=== PATIENT | female | born 2000 | race Caucasian/White ===

== ENCOUNTER 2022-10-12 09:12 | Outpatient (OUT) | payer BC, SELFPAY ==
[2022-10-12 09:35] LABS: Basophils Absolute Auto 0.1 10^3/uL (0.0-0.1); Eosinophils Absolute Auto 0.2 10^3/uL (0.0-0.7); Eosinophils Percent Auto 3.3 % (0.9-7.0); Hematocrit 41.1 % (36.0-48.0); Hemoglobin 13.7 g/dL (12.0-16.0); Immature Granulocytes Abs Auto 0.02 10^3/uL (0.00-0.03); Immature Granulocytes Pct Auto 0.3 % (0.0-0.5); Lymphocytes Absolute Auto 1.9 10^3/uL (1.2-3.8); Lymphocytes Percent Auto 27.5 % (20.5-60.0); Mean Corpuscular HGB Conc 33.3 g/dL (29.9-35.2); Mean Corpuscular Hemoglobin 30.5 pg (26.7-34.0); Mean Corpuscular Volume 91.5 fL (81.0-99.0); Mean Platelet Volume 10.2 fL (9.5-13.5); Monocytes Absolute Auto 0.6 10^3/uL (0.3-0.8); Neutrophils Absolute Auto 4.1 10^3/uL (1.4-6.5); Neutrophils Percent Auto 58.9 % (43.0-75.0); Platelet Count 242 10^3/uL (150-450); Red Blood Count 4.49 10^6/uL (4.20-5.40); Red Cell Distribution Width 12.7 % (11.0-15.0); White Blood Count 6.9 10^3/uL (4.0-11.0)
[2022-10-12 10:49] LABS: Alanine Aminotransferase 16 U/L (14-59); Aspartate Amino Transferase 11 U/L (15-37); Triglycerides 35 mg/dL (<=150)
== END 2022-10-12 09:13 | disposition home or self-care (01) ==
LOC: LAB 09:16
PROVIDERS: PCP Nurse Practitioner Family
DX: L70.0 Acne vulgaris (principal)
CPT/HCPCS: 36415; 84450; 84460; 84478; 85025

== ENCOUNTER 2022-10-12 21:31 | Outpatient (REF) | payer BC, SELFPAY ==
[2022-10-18 11:12] LABS: Age Gdln ACOG Testing Note (.); IGP, rfx Aptima HPV ASCU Note (.)
== END 2022-10-12 21:32 | disposition home or self-care (01) ==
LOC: LAB 21:31
PROVIDERS: PCP Nurse Practitioner Family; Visit Provider Physician Assistant
DX: L70.0 Acne vulgaris (principal); Z12.4 Encounter for screening for malignant neoplasm of cervix
CPT/HCPCS: 36415; 84450; 84460; 84478; 85025; G0145

== ENCOUNTER 2022-10-31 08:05 | Outpatient (OUT) | payer BC, SELFPAY ==
--- NOTE | 2022-10-31 08:08 | MM_ITS ---
Patient: COOKIE WEINER Exam Date: 10/31/2022 : 2000 Gender:F Ordering : JAMES Pizano . Admission #: [id number] Family : RADHA PURDY [facility] Order #: [id number] CLICK HERE TO VIEW EXAM RADIOLOGY REPORT PROCEDURE: MM TOMOSYNTHESIS DIAGNOSTIC BI, 10/31/2022, 08:42 US BREAST BI LIMITED, 10/31/2022, 08:12 COMPARISON: None. INDICATIONS: Biolateral Breast Cyst Calculator Name NCI Breast Cancer Risk Assessment Tool 5 Year Breast Cancer Risk Not Applicable. Lifetime Breast Cancer Risk Not Applicable. Personal Breast Cancer No Personal Ovarian Cancer No Treatments None Family Cancers Grandfather-paternal with colon cancer at age 80; Uncle-maternal with brain cancer at age 50. LOCATION: [facility] BREAST COMPOSITION: Extremely dense, which lowers the sensitivity of mammography. FINDINGS: DIAGNOSTIC CATEGORY 4--SUSPICIOUS FOR MALIGNANCY. FINDING DOES NOT EXHIBIT CLASSIC FINDINGS OF BREAST CANCER: RIGHT BREAST: Deep to a skin surface marker overlying the posterior upper-outer quadrant is a 2.0 x 1.6 x 1.4 cm partially circumscribed mass. Ultrasound evaluation demonstrates a lobular, smoothly circumscribed heterogeneous mass with small amount of internal blood flow, 2.2 x 2.2 x 1.3 cm. Appearance favors a fibroadenoma. Ultrasound-guided tissue sampling should be considered for confirmation. LEFT BREAST: No significant suspicious finding on mammography and during ultrasound imaging to account for patient's palpable sensation within the posterior upper-outer quadrant.. RECOMMENDATIONS: ULTRASOUND-GUIDED CORE BIOPSY: RIGHT BREAST PLEASE NOTE: A NORMAL MAMMOGRAM DOES NOT EXCLUDE THE POSSIBILITY OF BREAST CANCER. A CLINICALLY SUSPICIOUS PALPABLE LUMP SHOULD BE BIOPSIED. Dictated by: Robert Azevedo M.D. on 10/31/2022 at 09:24 Approved by: Robert Azevedo M.D. on 10/31/2022 at 09:34
--- NOTE | 2022-10-31 08:14 | US_ITS ---
Patient: COOKIE WEINER Exam Date: 10/31/2022 : 2000 Gender:F Ordering : JAMES Pizano . Admission #: [id number] Family : RADHA PURDY [facility] Order #: [id number] CLICK HERE TO VIEW EXAM RADIOLOGY REPORT PROCEDURE: MM TOMOSYNTHESIS DIAGNOSTIC BI, 10/31/2022, 08:42 US BREAST BI LIMITED, 10/31/2022, 08:12 COMPARISON: None. INDICATIONS: Biolateral Breast Cyst Calculator Name NCI Breast Cancer Risk Assessment Tool 5 Year Breast Cancer Risk Not Applicable. Lifetime Breast Cancer Risk Not Applicable. Personal Breast Cancer No Personal Ovarian Cancer No Treatments None Family Cancers Grandfather-paternal with colon cancer at age 80; Uncle-maternal with brain cancer at age 50. LOCATION: [facility] BREAST COMPOSITION: Extremely dense, which lowers the sensitivity of mammography. FINDINGS: DIAGNOSTIC CATEGORY 4--SUSPICIOUS FOR MALIGNANCY. FINDING DOES NOT EXHIBIT CLASSIC FINDINGS OF BREAST CANCER: RIGHT BREAST: Deep to a skin surface marker overlying the posterior upper-outer quadrant is a 2.0 x 1.6 x 1.4 cm partially circumscribed mass. Ultrasound evaluation demonstrates a lobular, smoothly circumscribed heterogeneous mass with small amount of internal blood flow, 2.2 x 2.2 x 1.3 cm. Appearance favors a fibroadenoma. Ultrasound-guided tissue sampling should be considered for confirmation. LEFT BREAST: No significant suspicious finding on mammography and during ultrasound imaging to account for patient's palpable sensation within the posterior upper-outer quadrant.. RECOMMENDATIONS: ULTRASOUND-GUIDED CORE BIOPSY: RIGHT BREAST PLEASE NOTE: A NORMAL MAMMOGRAM DOES NOT EXCLUDE THE POSSIBILITY OF BREAST CANCER. A CLINICALLY SUSPICIOUS PALPABLE LUMP SHOULD BE BIOPSIED. Dictated by: Robert Azevedo M.D. on 10/31/2022 at 09:24 Approved by: Robert Azevedo M.D. on 10/31/2022 at 09:34
== END 2022-10-31 08:06 | disposition home or self-care (01) ==
LOC: MAMMO 08:05
PROVIDERS: PCP Nurse Practitioner Family; Visit Provider Physician Assistant
DX: N60.01 Solitary cyst of right breast (principal); N60.02 Solitary cyst of left breast
CPT/HCPCS: 76642; 77066; G0279

== ENCOUNTER 2022-11-21 10:54 | Day surgery (SDC) | payer BC, SELFPAY ==
--- NOTE | 2022-11-21 11:08 | US_ITS ---
Patient: COOKIE WEINER Exam Date: 11/21/2022 : 2000 Gender:F Ordering : DR Fabian Blanca . Admission #: [id number] Family : [facility]DY [facility] Order #: [id number] CLICK HERE TO VIEW EXAM This report includes an Addendum and supersedes previous reports for this exam. RADIOLOGY REPORT PROCEDURE: US BREAST VAC BX W/ CLIP RT COMPARISON: None. INDICATIONS: Right Breast Mass DESCRIPTION: After obtaining informed consent, a vacuum assisted ultrasound-guided biopsy was performed in the usual sterile manner. The location of the biopsy was then marked as indicated below. FINDINGS: RECOMMENDATIONS: SPECIMEN #, LOCATION: 5 samples, 9 o'clock right breast BIOPSY NEEDLE: 13 gauge Elite (r) vacuum core biopsy needle. MARKERS(S) PLACED: A single metallic marker was placed in the appropriate targeted location. MEDICATION: 3 cubic cm 1% buffered lidocaine without epinephrine superficial, 8 cubic cm Buffered 1% lidocaine with epinephrine deep. COMPLICATIONS: None. PATHOLOGY LAB: Pending. CONCLUSION: 1. Uneventful ultrasound-guided breast biopsy. 2. Pathology results are pending. An addendum to this report will be provided after pathology results are available. Dictated by: Saulo Page MD on 11/21/2022 at 13:18 Approved by: Saulo Page MD on 11/21/2022 at 13:18 ADDENDUM: The pathology report is now available and shows benign findings concordant with the imaging findings. Final diagnosis: Benign fibroepithelial lesion, consistent with fibroadenoma. Findings faxed to Dr. Blanca. Receipt verified with [facility] by telephone Dictated by: Saulo Page MD on 11/25/2022 at 11:36 Approved by: Saulo Page MD on 11/25/2022 at 11:36 US/US breast vac bx w/ clip RT IMPRESSION: Uneventful ultrasound guided biopsy. The patient was instructed to obtain follow up care and biopsy results from the referring physician. Electronically authenticated by: SAULO PAGE Date: 11/21/2022 13:30
--- NOTE | 2022-11-21 11:08 | MM_ITS ---
Patient: COOKIE WEINER Exam Date: 11/21/2022 : 2000 Gender:F Ordering : DR Fabian Blanca . Admission #: [id number] Family : RADHA PURDY [facility] Order #: [id number] CLICK HERE TO VIEW EXAM This report includes an Addendum and supersedes previous reports for this exam. RADIOLOGY REPORT PROCEDURE: MAMMOGRAM POST BIOPSY IMAGES COMPARISON: MM TOMOSYNTHESIS DIAGNOSTIC BI, 10/31/2022. INDICATIONS: Right Breast Mass BREAST COMPOSITION: Extremely dense, which lowers the sensitivity of mammography. FINDINGS: BIOPSY MARKER: A metallic marker has been placed in the targeted location within the upper outer quadrant of the right breast corresponding to a targeted mass. Dictated by: Tima Swartz MD on 11/22/2022 at 07:39 Approved by: Tima Swartz MD on 11/22/2022 at 07:40 ADDENDUM: FINDINGS: DIAGNOSTIC CATEGORY 2--BENIGN FINDING: RECOMMENDATIONS: CLINICAL EVALUATION. Dictated by: Tima Swartz MD on 01/11/2023 at 10:56 Approved by: Tima Swartz MD on 01/11/2023 at 10:56
[2022-11-21 11:15] VITALS: BP 107/64; PULSE 75; O2SAT 98
[2022-11-21] MEDS: LIDOCAINE HCL/EPINEPHRINE 10 ML, SODIUM BICARBONATE 1 MEQ INJ (11:15)
[2022-11-21] MEDS: LIDOCAINE HCL 10 ML, SODIUM BICARBONATE 1 MEQ INJ (11:15)
== END 2022-11-21 12:35 | disposition home or self-care (01) ==
LOC: US 10:55
PROVIDERS: Radiology Diagnostic Radiology; PCP Nurse Practitioner Family; Visit Provider Obstetrics & Gynecology
DX: D24.1 Benign neoplasm of right breast (principal)
CPT/HCPCS: 19083; 77065; 88305

== ENCOUNTER 2023-04-15 09:37 | Outpatient (OUT) | payer OTHER, SELFPAY ==
[2023-04-15 11:21] LABS: HCG Quantitative <1 mIU/mL
== END 2023-04-15 09:38 | disposition home or self-care (01) ==
LOC: LAB 09:41
PROVIDERS: PCP Nurse Practitioner Family; Visit Provider Obstetrics & Gynecology
DX: N92.6 Irregular menstruation, unspecified (principal)
CPT/HCPCS: 36415; 84702

== ENCOUNTER 2023-05-31 20:45 | Outpatient (REF) | payer OTHER, SELFPAY ==
--- OUTSIDE RECORDS SUMMARY | 2023-05-31 20:53 | XMS_ITS | CCD ---
Author Organization [facility] Care Team Providers Care Fur Puller Name Role Phone Tima Jackman Unavailable MAG, DR ARCEO Admitting Unavailable MAG, DR ARCEO Attending Unavailable RADHA PURDY Primary Care Unavailable DR ADIS HATHAWAY Consulting Unavailable MINI, DR PIRES Admitting Unavailable MINI, DR PIRES Attending Unavailable RADHA PURDY Primary Care Unavailable MINI, DR PIRES Consulting Unavailable Lauren Hyde Unavailable RADHA PURDY Primary Care Physician Kevin Choi Admitting Unavailable Kevin Choi Referring Unavailable Kevin Choi Attending Unavailable GREER PAYNE Attending Unavailable GREER PAYNE Admitting Unavailable Kevin Choi Attending Unavailable Kevin Choi Admitting Unavailable Kevin Choi Referring Unavailable KEVIN CHOI Attending Unavailable JIMBO, KEVIN Brasher Attending Unavailable Allergies Allergy Classification Reported Allergen(s) Allergy Type Date of Onset Reaction(s) Facility (1 source) Adhesive agent Drug allergy (disorder) [facility] Repository (4 sources) Latex; Translations: [Latex] Drug allergy Swelling, Itching [facility] Medications Current Medications Medication Drug Class(es) Dates Sig (Normalized) Sig (Original) acetaminophen 325 mg / HYDROcodone bitartrate 5 mg oral tablet (1 source) Opioid Agonist Start: 02-08-2023 [place] 325 mg-5 mg oral tablet 1 tab(s), Oral, q6hr for pain, 24 tab(s), Refill(s) 0, [id number], 166.7, cm, 01/27/23 11:47:00 EST, Height/Length Dosing, 79.2, kg, 01/27/23 11:47:00 EST, Weight Dosing Start Date: 02/08/23 Status: Ordered amoxicillin 875 mg / clavulanate 125 mg oral tablet (1 source) Penicillin-class Antibacterial Start: 12-11-2022 take 1 tablet by mouth every twelve hours Amoxicillin-Pot Clavulanate 875-125 MG 1 tablet Orally every 12 hrs for 10 day(s) Dec, Active ARIPiprazole 2 mg oral tablet (5 sources) Atypical Antipsychotic Start: 01-27-2023 take 1 tablet by mouth once daily aripiprazole 2 mg Tab 2 mg = 1 tab(s), Oral, Daily, Anxiety Start Date: 01/27/23 Status: Ordered take 1 tablet by patsy th every twenty-four hours ARIPiprazole 10 MG 1 tablet Orally Once a day Active ARIPiprazole Act jeanine dicyclomine hydrochloride 20 mg oral tablet (2 sources) Anticholinergic Start: 02-08-2021 take 1 tablet by mouth every eight hours Dicyclomine HCl 20 MG 1 tablet Orally Three times a day for 30 days prn Feb, Active ISOtretinoin 40 mg oral capsule (4 sources) Retinoid Start: 01-27-2023 take 1 capsule by mouth once daily Isotretinoin (Eqv-Absorica) 40 mg oral capsule 40 mg = 1 cap(s), Oral, Daily, Other (see comment) Start Date: 01/27/23 Status: Ordered take [address] [facility] every twenty-four hours Accutane 10 MG 1 capsule Orally once a day Active pantoprazole 40 mg delayed release oral tablet (2 sources) Proton Pump Inhibitor take 1 tablet by mouth every twenty-four hours Protonix 40 MG 1 tablet Orally Once a day Active sertraline 50 mg oral tablet (5 sources) Serotonin Reuptake Inhibitor Start: take 1 tablet by mouth once daily sertraline 50 mg Tab 50 mg = 1 tab(s), Oral, Daily, Depression Start Date: 01/27/23 Status: Ordered take 1 tablet by patsy th every twenty-four hours Zoloft 50 MG 1 tablet Orally Once a day Active sucralfate 1000 mg oral tablet (1 source) Aluminum Complex Start: 08-26-2021 take 1 tablet by mouth every twelve hours Sucralfate 1 GM 1 tablet on an empty stomach Orally Twice a day for 30 day(s) Aug, Active Completed/Discontinued Medications Medication Drug Class(es) Dates Sig (Normalized) Sig (Original) hydrocortisone 25 mg/ml topical cream (2 sources) Corticosteroid Start: 08-26-2021 Anusol-HC 2.5 % 1 application Externally Twice a day for 14 days Aug, Not-Taking ondansetron 4 mg oral tablet (3 sources) Serotonin-3 Receptor Antagonist Start: 02-08-2021 take 1 tablet by mouth every six hours as needed Ondansetron HCl 4 MG 1 tablet Orally EVERY 6 HRS NEEDED for 30 day(s) Feb, Not-Taking Problems Active Problems Problem Classification Problem Date Documented Da te Episodic/Chronic Abdominal pain (4 sources) Right upper quadrant pain; Translations: [Right upper quadrant pain] Onset: 2 Resolved: 2 Episodic Acute and chronic tonsillitis (1 source) Chronic tonsillitis; Translations: [Chronic tonsillitis] Onset: 4 Chronic Anxiety disorders (3 sources) Anxiety 01-27-2023 Chronic Esophageal disorders (5 sources) Gastroesophageal reflux disease; Translations: [Gastro-esophageal reflux disease without esophagitis] Onset: 2 Resolved: 2 Chronic Hemorrhoids (3 sources) Hemorrhoids; Translations: [Unspecified hemorrhoids] Onset: 2 Resolved: 2 Episodic Menstrual disorders (4 sources) Irregular menstruation, unspecified; Translations: [IRREGULAR MENSTRUATION UNSPECIFIED] Onset: 2 Chronic Mood disorders (6 sources) Bipolar disorder; Translations: [Depressive disorder] 01-27-2023 Chronic Other gastrointestinal disorders (5 sources) Irritable bowel syndrome; Translations: [Mixed irritable bowel syndrome] 01-27-2023 Chronic Other gastrointestinal disorders (1 source) Mixed irritable bowel syndrome Onset: 2 Resolved: 2 Chronic Other upper respiratory infections (3 sources) Acute sinusitis, unspecified; Translations: [Acute pharyngitis, unspecified] Onset: 2 Episodic Residual codes; unclassified (3 sources) FH: Crohn's disease; Translations: [Family history of other diseases of the digestive system] Episodic Residual codes; unclassified (3 sources) Insomnia 01-27-2023 Episodic Substance-related disorders (3 sources) Smoker 08-23-2020 Chronic Comment on above: Added secondary to d ocumentation in Social History. Unclassified (3 sources) CONTACT W/AND (SUSP) EXPOS COVID-19; Translations: [CONTACT W/AND (SUSP) EXPOS COVID-19] Onset: Past or Other Problems Problem Classification Problem Date Documented Da te Episodic/Chronic Nausea and vomiting (1 source) Nausea with vomiting, unspecified Onset: 02-08-2021 Resolved: 02-08-2021 Episodic Other gastrointestinal disorders (1 source) Diarrhea, unspecified Onset: 02-08-2021 Resolved: 02-08-2021 Episodic Residual codes; unclassified (1 source) Family history of other diseases of the digestive system Onset: 02-08-2021 Resolved: 02-08-2021 Episodic Unclassified (1 source) CONTACT W/AND (SUSP) EXPOS COVID-19; Translations: [CONTACT W/AND (SUSP) EXPOS COVID-19] Onset: 12-09-2021 Results Test Name Value Interpretation Reference Range Facility IntraOperative Documentson 0 02-13-2023 IntraOperative Documents [id number]#1.00TIFF [facility] Postoperative Documentson Postoperative Documents [id number]#1.00TIFF [facility] Consent for Anesthesiaon Consent for Anesthesia [id number]#1.00TIFF [facility] Discharge Instructionson Discharge Instructions [id number]#1.00TIFF [facility] IntraOperative Documentson 0 02-09-2023 IntraOperative Documents [id number]#1.00TIFF [facility] Preoperative Documentson Preoperative Documents [id number]#1.00TIFF [facility] Consent for Treatmenton Consent for Treatment [id number]#1.00TIFF [facility] Discharge Instructionson Discharge Instructions COOKIE WEINER :2000 Visit Date:02/08/2023 Inpatient Discharge Instructions Your Care Team Admitting Physician - Kevin Choi DO Referring Physician - Kevin Choi DO Reason for Your Visit CHRONIC TONSILITIS Your Diagnosis Chronic tonsillitis Tests Performed Pathology Tissue Exam -- Results Pending -- U Beta Hcg Qual Please visit your patient portal for your results or contact your primary care physician. This Is Your Medications List acetaminophen-hydrocodone ([place] 325 mg-5 mg oral tablet) aripiprazole (aripiprazole 2 mg Tab) isotretinoin (Isotretinoin (Eqv-Absorica) 40 mg oral capsule) sertraline (sertraline 50 mg Tab) Procedure History Biopsy of breast, EGD - esophagogastroduodenoscopy. What to do next Instructions From Your Doctor Event Name Event Result Discharge Instructions Freetext No exertional activityPlenty of fluidsMust chew and swallow Discharge Activity Ambulate as tolerated Discharge Restrictions Do not operate machinery or tools Discharge Diet(s) Regular Call Your Doctor For Persistent or heavy bleeding, Temperature above 101.5 degrees, Persistent vomiting Discharge Instructions Discharge Instructions New Follow Up Appointments after Discharge Follow Up with Kevin Choi When: Where: [facility] [address] [place] [phone] Business (1) Medications What How Much When Instructions Next Dose New acetaminophen-hydrocodone ([place] 325 mg-5 mg oral tablet) 1 Tablets By Mouth Every 6 hours as needed for for pain Pickup at [facility]/pharmacy #[id number] Unchanged aripiprazole (aripiprazole 2 mg Tab) 1 Tablets By Mouth Every day Unchanged isotretinoin (Isotretinoin (Eqv-Absorica) 40 mg oral capsule) 1 Capsules By Mouth Every day Unchanged sertraline (sertraline 50 mg Tab) 1 Tablets By Mouth Every day Pharmacy Information [facility]/pharmacy #[id number]: [address], [place] [phone] Test Results No qualifying data available. Allergies Latex (Swelling, Itching) [employer] [place], [place] Kevin Chio, DO DISCHARGE INSTRUCTIONS: TONSILLECTOMY & ADENOIDECTOMY (T&A) (Adult) The following information is to help you understand what to expect following a T&A. PAIN: Throat pain can be quite severe immediately following a T&A. The same nerves that go to the tonsils also go to the ears. It is common to experience pain in the ears between the 3rd and 7th days following the T&A. The pain medication which was prescribed should help lessen the pain, although it may not completely take it away. The sooner chewing and swallowing begins, the quicker the pain will subside. Take the pain medication as needed in the prescribed dosage. DO NOT take Ibuprofen, Aleve, Advil, Motrin, or product containing aspirin! These medications can increase the chances of bleeding. Tylenol is a good choice when the pain is less severe. Additional measures to decrease throat pain include ice collars around the neck, popsicles, cold liquids, and chewing gum (but not Aspergum). DIET: You will probably not want to eat the day of surgery because it hurts to swallow. The day of surgery, all that is necessary is to drink liquids. This may be in the form of popsicles, jello, sherbert, etc. The day after surgery it is very important to begin to chew and swallow. Start with small pieces of bread, donuts, apples without the skin, etc. The sooner chewing and swallowing begin, the faster the recovery. You cannot damage your throat by swallowing solid foods, in fact it is good for the throat! There are no food restrictions, however sharp foods such as potato chips and rosas can cause pain. Drink plenty of fluids daily. TEMPERATURE: It is common to run a low-grade fever (99? ? 100? F, oral) for the first few days following surgery. This may be treated with Tylenol. A temperature greater than 101 usually is the result of early dehydration and means that your child needs more fluid. Call the office if the temperature does not decrease despite Tylenol and fluids. ACTIVITY: Generally, it is advisable to keep a low level of activity for the first 26-48 hours following their T&A. You will feel tired and lack energy for the first day or two after surgery. As you begin to feel better, activity can slowly be increased. Vigorous activity should be avoided for 7-14 days following the T&A. Most adults can return to full activity 10-14 days after surgery. BLEEDING: Bleeding following a T&A is rare. The most common time to bleed is the day of surgery. The second most common time is approximately 5-10 days following surgery, when the scabs begin to loosen and fall off. During this time, you may spit up some blood tinged saliva. If this persists longer than 5-10 minutes, call the office. If brisk bleeding occurs, go immediately to the nearest Emergency Room where your doctor will be notifie (more content not included)... [facility] Comment on above: Result Comment: Elec tronically Signed By: Cheko BEAR, Gabrielle Shah\.br\Date and Time Signed: 02/08/23 08:42 EST H&P Updateon 02-08-2023 H&P Update [id number]#1.00TIFF [facility] Inpatient Patient Summaryon 02-08-2023 Inpatient Patient Summary [address] [address] [facility] Clinical Discharge Instructions PERSON INFORMATION Name: [facility] Admitting Physician: Kevin Choi DO Attending Physician: Kevin Choi DO PCP: RADHA PURDY CNP Discharge Diagnosis: Chronic tonsillitis Comment: PATIENT EDUCATION INFORMATION Instructions: Medication Leaflets: Follow up: With: Address: When: Kevin Choi [facility] [place] [address] [place] [phone] Business (1) MEDICATION LIST New Medications [facility]/pharmacy #[id number], [address], [place] [phone], [phone] acetaminophen-hydrocodone ([place] 325 mg-5 mg oral tablet) 1 Tablets By Mouth every 6 hours as needed for pain. Refills: 0. Medications to Continue with No Changes Other Medications aripiprazole (aripiprazole 2 mg Tab) 1 Tablets By Mouth every day. isotretinoin (Isotretinoin (Eqv-Absorica) 40 mg oral capsule) 1 Capsules By Mouth every day., acne sertraline (sertraline 50 mg Tab) 1 Tablets By Mouth every day. Comment: Normal [facility] Main OR Intraoperative Recor don 02-08-2023 Main OR Intraoperative Record IntraOp Document Type FT Summary Primary Physician: Kevin Choi DO Finalized Date/Time: 02/08/23 14:54:54 Pt. Name: COOKIE WEINER GIOVANNY /Sex: 2000 Female Med Rec #: [id number] Physician: Kevin Choi DO Financial #: [id number] Pt. Type: A Room/Bed: [facility] Admit/Disch: 02/08/23 05:57:01 - 02/08/23 10:00:00 Institution: Case Times FT Entry 1 Patient Times In Room 02/08/23 07:44:00 Out Room 02/08/23 08:20:00 Procedure Times Start 02/08/23 07:57:00 Stop 02/08/23 08:12:00 Anesthesia Times Start 02/08/23 07:44:00 Stop 02/08/23 08:20:00 Last Modified By: Daryl BEAR, Giovana Griffith 02/08/23 08:20:19 General Comments: 02/08/23 Chart opened to review and send charges [facility]FA Case Attendance FT Entry 1 Entry 2 Entry 3 Case Attendee Karin Campbell CRNA, DO, Paul S Ferrer RN, Giovana Griffith Role Performed AREA RELIEF PILOT Surgeon - Primary Staff Counsel - Primary Time In 02/08/23 07:44:00 02/08/23 07:44:00 02/08/23 07:44:00 Time Out 02/08/23 08:20:00 02/08/23 08:20:00 02/08/23 08:20:00 Procedure TONSILLECTOMY(.) TONSILLECTOMY(.) TONSILLECTOMY(.) Comments DR. GARCIA SUPERVISING Last Modified By: Daryl BEAR, Giovana Brito RN, Giovana Brito RN, Giovana Griffith 02/08/23 Angi Griffith 02/08/23 Angi Griffith 02/08/23 08:20:21 08:20:21 08:20:21 Entry 4 Case Attendee Amrita Webster Role Performed Scrub - Primary Time In 02/08/23 07:44:00 Time Out 02/08/23 08:20:00 Procedure TONSILLECTOMY(.) Comments Last Modified By: Giovana Brito RN 02/08/23 08:20:21 Perioperative Protocols FT Pre-Care Text: Implements protective measures prior to operative or invasive procedure, confirms identity before the operative or invasive procedure, verifies operative procedure, surgical site, and laterality Entry 1 Procedure(s) TONSILLECTOMY(.) Patient Identity Birthday, ID Band Verified (select at Check, Patient least 2): Participation Consents / H and P Anesthesia Consent, Operative Site N/A Verified HandP, Surgery/Procedure Marking Verified Consent Surgical Site Yes Laterality Verified Yes Verified Procedure Verified Yes Correct Patient Yes Position Verified Availability Equipment, Medication Prep Dry n/a Verified (If Applicable) PreOp Antibiotic No Time Out Kevin Choi DO, Given Participants Karin Campbell CRNA, Giovana Brito RN, [place], [place] A Time Out Complete 02/08/23 07:57:00 Outcomes Met? Yes Last Modified By: Giovana Brito RN 02/08/23 08:08:39 Post-Care Text: The patient is free from signs and symptoms of injury caused by extraneous objects Allergy Information FT Pre-Care Text: Verifies allergies Entry 1 Allergies Reviewed? Yes Allergies Reviewed Self/Patient With Outcomes Met? Yes Last Modified By: Giovana Brito RN 02/08/23 08:08:43 Post-Care Text: The patient received appropriate medication(s) safely administered during the perioperative period Surgical Procedures FT Entry 1 Procedure Description Procedure TONSILLECTOMY Modifiers . Surgeon Description TONSILLECTOMY Primary Procedure Yes Primary Surgeon Kevin Choi DO Start 02/08/23 07:57:00 Stop 02/08/23 08:12:00 Anesthesia Type General Surgical Service ENT Wound Class 2 - Clean-Contaminated Last Modified By: Giovana Brito RN 02/08/23 08:14:15 General Case Data FT Pre-Care Text: Classifies surgical wound, implements aseptic technique, initiates traffic control Entry 1 Case Information OR OR 2 FT Case Level Level 2 Wound Class 2 - Clean-Contaminated Specialty ENT ASA Class 2 Preop Diagnosis CHRONIC TONSILITIS Postop Same As Preop Yes Postop Diagnosis CHRONIC TONSILITIS Outcomes Met? Yes Last Modified By: Giovana Brito RN 02/08/23 08:08:51 Post-Care Text: The patient is free from signs and symptoms of infection Skin Assessment (Pre Procedure) FT Pre-Care Text: Implements protective measures to prevent skin/ tissue injury due to thermal or mechanical sources Evaluates for signs and symptoms of physical injury to skin and tissue Entry 1 Skin Integrity Intact, [place], Warm, and Skin Abnormality No Dry Outcomes Met? Yes Last Modified By: Giovana Brito RN 02/08/23 08:08:59 Post-Care Text: The patient is free from signs and symptoms of injury caused by extraneous objects Patient Positioning FT Pre-Care Text: Identifies physical alterations that require additional precautions for procedure-specific positioning, verifies presence of prosthetics or corrective devices, positions the patient, evaluates the patient for signs and symptoms of injury as a result of positioning Entry 1 Procedure TONSILLECTOMY(.) Body Position Supine Feet Uncrossed? Yes Left Arm Position Extended on Padded Arm Board Right Arm Position Tucked and Padded at Left Leg Position Extended Side Right Leg Position Exten (more content not included)... Normal [facility] Main OR PACU I [facility] Main OR PACU I Record PACU Phase I Document Type FT Summary Primary Physician: Kevin Choi DO Finalized Date/Time: 02/08/23 09:04:57 Pt. Name: COOKIE WEINER/Sex: 2000 Female Med Rec #: [id number] Physician: Kevin Choi DO Financial #: [id number] Pt. Type: A Room/Bed: Admit/Disch: 02/08/23 05:57:01 - Institution: Case Times PACU I FT Pre-Care Text: Identifies barriers to communication and implements measures to provide psychological support Develops individualized plan of care, and ensures continuity of care Maintains patient's dignity and privacy, and maintains patient confidentiality Identifies and reports philosophical, cultural, and spiritual beliefs and values Identifies individual values and wishes concerning care Implements aseptic technique, and administers prescribed antibiotic therapy and immunizing agents as ordered Evaluates postoperative tissue perfusion Implements thermoregulation measures, and monitors body temperature Evaluates postoperative respiratory status Evaluates postoperative cardiac status Evaluates postoperative neurological status Assesses pain control, collaborated in initiating patient-controlled analgesia and implements alternative methods of pain control Verifies allergies, administers prescribed medications and solutions, evaluates response to medications Entry 1 In PACU I 02/08/23 08:21:00 Discharge from PACU 02/08/23 08:51:00 I Outcomes Met? Yes Last Modified By: Laura Cerda RN 02/08/23 09:04:40 Post-Care Text: The patient demonstrates knowledge of the expected response to the operative or invasive procedure The patient's care is consistent with the individualized perioperative plan of care The patient's right to privacy is maintained The patient's value system, lifestyle, ethnicity, and culture are considered, respected, and incorporated into the perioperative plan of care The patient participates in decisions affecting his or her perioperative plan of care The patient is free from signs and symptoms of infection The patient has wound/tissue perfusion consistent with or improved from baseline levels established preoperatively The patient is at or returning to normothermia at the conclusion of the immediate postoperative period The patient's respiratory function is consistent with or improved from baseline levels established preoperatively The patient's cardiovascular status is consistent with or improved from baseline levels established preoperatively The patient's cardiovascular status is consistent with or improved from baseline levels established preoperatively The patient demonstrates and/or reports adequate pain control throughout the perioperative period The patient received appropriate medication(s), safely administered during the perioperative period Acuity Level PACU I FT Entry 1 Start Time 02/08/23 08:21:00 Stop Time 02/08/23 08:51:00 Acuity Level Acuity Level I Last Modified By: Laura Cerda RN 02/08/23 09:04:54 Finalized By: Laura Cerda RN Document Signatures Signed By: Laura Cerda RN 02/08/23 09:04 [facility] Main OR PACU II [facility] Main OR PACU II Record PACU Phase II Document Type FT Summary Primary Physician: Kevin Choi DO Finalized Date/Time: 02/08/23 10:44:11 Pt. Name: COOKIE WEINER GIOVANNY Judd/Sex: 2000 Female Med Rec #: [id number] Physician: Kevin Choi DO Financial #: [id number] Pt. Type: A Room/Bed: [place] [address] Admit/Disch: 02/08/23 05:57:01 - 02/08/23 10:00:00 Institution: Case Times PACU II FT Pre-Care Text: Identifies barriers to communication and implements measures to provide psychological support and determines knowledge level Develops individualized plan of care, and ensures continuity of care Maintains patient's dignity and privacy, and maintains patient confidentiality Identifies and reports philosophical, cultural, and spiritual beliefs and values Identifies individual values and wishes concerning care administers prescribed antibiotic therapy and immunizing agents as ordered, Evaluates postoperative tissue perfusion Implements thermoregulation measures, and monitors body temperature Evaluates postoperative respiratory status Evaluates postoperative cardiac status Evaluates postoperative neurological status Assesses pain control, collaborated in initiating patient-controlled analgesia and implements alternative methods of pain control Verifies allergies, administers prescribed medications and solutions, evaluates response to medications Entry 1 In PACU II 02/08/23 08:55:00 Discharge from PACU 02/08/23 10:00:00 II Outcomes Met? Yes Last Modified By: Radha Valdovinos RN 02/08/23 10:43:49 Post-Care Text: The patient demonstrates knowledge of the expected response to the operative or invasive procedure The patient's care is consistent with the individualized perioperative plan of care The patient's right to privacy is maintained The patient's value system, lifestyle, ethnicity, and culture are considered, respected, and incorporated into the perioperative plan of care The patient participates in decisions affecting his or her perioperative plan of care. The patient is free from signs and symptoms of infection The patient has wound/tissue perfusion consistent with or improved from baseline levels established preoperatively The patient is at or returning to normothermia at the conclusion of the immediate postoperative period The patient's respiratory function is consistent with or improved from baseline levels established preoperatively The patient's cardiovascular status is consistent with or improved from baseline levels established preoperatively The patient's neurological status is consistent with or improved from baseline levels established preoperatively The patient demonstrates and/or reports adequate pain control throughout the perioperative period The patient received appropriate medication(s), safely administered during the perioperative period Finalized By: Radha Valdovinos RN Document Signatures Signed By: Radha Valdovinos RN 02/08/23 10:43 Radha Valdovinos RN 02/08/23 10:44 Normal [facility] Main OR Preoperative Recordo n 02-08-2023 Main OR Preoperative Record PreOp Document Type FT Summary Primary Physician: Kevin Choi DO Finalized Date/Time: 02/08/23 08:11:26 Pt. Name: WEINER COOKIEGOMEZ GonzalezO.B./Sex: 2000 Female Med Rec #: [id number] Physician: Kevin Choi DO Financial #: [id number] Pt. Type: A Room/Bed: [facility] Admit/Disch: 02/08/23 05:57:01 - Institution: Case Times PreOp FT Pre-Care Text: Verifies consent for planned procedure, identifies individual values and wishes concerning care, includes family members in perioperative teaching Entry 1 Patient Times. In Pre Surgery 02/08/23 22:30:00 Out Pre Surgery 02/08/23 07:42:00 Outcomes Met? Yes Last Modified By: Giovana Brito RN 02/08/23 08:11:24 Post-Care Text: The patient participates in decisions affecting his or her perioperative plan of care Finalized By: Giovana Brito RN Document Signatures Signed By: Giovana Brito RN 02/08/23 08:11 Normal [facility] Monitor Recordon 02-08-2023 Monitor Record [id number] Normal [facility] Monitor Record [id number] [facility] Operative Reporton Operative Report SURGERY DATE: 2023 PREOPERATIVE DIAGNOSIS: Chronic tonsillitis POSTOPERATIVE DIAGNOSIS: Chronic tonsil stones OPERATION: Tonsillectomy ANESTHESIA: General BLOOD LOSS: Less than 10 cc COMPLICATIONS: None GROSS FINDINGS: This is a 23 year old white female with a history of chronic throat discomfort from cryptic and chronically infected tonsils along with repeated problems with tonsil stones and throat irritation. Intraoperatively, tonsils were 1-2+, hypertrophic with a significant amount of cryptic degeneration as well as stone formation. PROCEDURE: Cookie was brought to the Operating Room Suite at [facility] at which time general anesthesia was administered via endotracheal tube. The patient was placed in supine position at which time she was prepped and draped in normal fashion. A mouth gag was placed into the oral airway and opened exposing the oropharynx. The mouth gag was then suspended from the Summers stand. Right tonsil was grasped with a curved Allis forceps and medially retracted. Using electric Bovie cautery the tonsil was then dissected from the tonsil fossa. The tonsil was removed in toto and sent for pathological analysis. Hemostasis of the tonsil fossa was achieved using electric suction cautery. When this was completed, the exact same procedure was completed on the opposite side. Once again tonsil was removed in toto and sent for pathological analysis. Hemostasis achieved using electric suction cautery. The mouth and throat were suctioned of all residual sections. Mouth gag was taken off suspension and released for 30 seconds. Mouth gag was opened revealing no evidence of breakthrough bleeding. Vistaseal was then applied to the tonsil fossae bilaterally. Mouth gag was released and removed from the oral airway. Anesthesia was reversed and the patient awoke without difficulty. The patient was taken to Post-Anesthesia Care Unit in stable and satisfactory condition. Karime Miller Dictated: 02/08/2023 [id number] Transcribed: 02/08/2023 [facility] Comment on above: Result Comment: Elec tronically Signed By: Kevin Choi DO\.br\Date and Time Signed: 02/08/23 10:04 EST Operative Report Patient: JESUS WEINER Age: 23 years Sex: Female : 2000 Associated Diagnoses: None Author: Kevin Choi DO Postoperative Information Preoperative Diagnosis: Chronic tonsillitis. Postoperative Diagnosis: Same. Procedure: Tonsillectomy. Anesthesia Method: General. Performed by: Kevin Choi DO. Specimens Removed: Tonsils. Estimated Blood Loss: 5 ml. Complications: None. Normal [facility] Comment on above: Result Comment: Elec tronically Signed By: Kevin Choi DO\.br\Date and Time Signed: 02/08/23 08:21 EST Outpatient Surgery Discharge Instructionon 02-08-2023 Outpatient Surgery Discharge Instruction [address] [address] Patient Discharge Instructions PERSON INFORMATION Name: COOKIE WEINER Date of : 2000 Current Date: 02/08/2023 08:26:48 PHYSICIANS Admitting Physician: Kevin Choi DO Discharge Diagnosis: Chronic tonsillitis COOKIE WEINER has been given the following list of follow-up instructions, prescriptions, and patient education materials: PATIENT FOLLOW-UP INFORMATION Diet: Regular Discharge Activity: Ambulate as tolerated Discharge Restrictions: Do not operate machinery or tools Call Your Doctor For: Persistent or heavy bleeding, Temperature above 101.5 degrees, Persistent vomiting Additional Instructions: No exertional activity Plenty of fluids Must chew and swallow IF UNABLE TO CONTACT YOUR PHYSICIAN AND YOU FEEL IT IS AN EMERGENCY, GO TO THE NEAREST EMERGENCY ROOM OR CALL 911 IHUSAM KATIE JO, have received the attached patient education materials/instructions and have verbalized understanding: May we do a follow up call? Yes No I was present when discharge instructions were given __ Patient Signature Date Clinican/Nurse Signature Date Follow up: With: Address: When: Kevin Choi [facility] [address] [place] [address] [phone] Business (1) Pharmacy Information: You may receive a survey from Franci Crum asking you to rate your care experience. Your feedback is important and will help us understand what we do well and how we can improve the quality of care we provide to you, your loved ones and our community. It?s an honor to serve you. Thank you for choosing [facility] HERE ARE THE MEDICATION CHANGES THAT OCCURRED DURING YOUR HOSPITAL STAY New Medications [id number], [address], [place] [phone], [phone] acetaminophen-hydrocodone ([place] 325 mg-5 mg oral tablet) 1 Tablets By Mouth every 6 hours as needed for pain. Refills: 0. Medications to Continue with No Changes Other Medications aripiprazole (aripiprazole 2 mg Tab) 1 Tablets By Mouth every day. isotretinoin (Isotretinoin (Eqv-Absorica) 40 mg oral capsule) 1 Capsules By Mouth every day., acne sertraline (sertraline 50 mg Tab) 1 Tablets By Mouth every day. PATIENT EDUCATION INFORMATION Instructions: Medication Leaflets: Normal [facility] Patient Education - Texton 0 02-08-2023 Patient Education - Text [place], [place] Kevin Choi, DO DISCHARGE INSTRUCTIONS: TONSILLECTOMY & ADENOIDECTOMY (T&A) (Adult) The following information is to help you understand what to expect following a T&A. PAIN: Throat pain can be quite severe immediately following a T&A. The same nerves that go to the tonsils also go to the ears. It is common to experience pain in the ears between the 3rd and 7th days following the T&A. The pain medication which was prescribed should help lessen the pain, although it may not completely take it away. The sooner chewing and swallowing begins, the quicker the pain will subside. Take the pain medication as needed in the prescribed dosage. DO NOT take Ibuprofen, Aleve, Advil, Motrin, or product containing aspirin! These medications can increase the chances of bleeding. Tylenol is a good choice when the pain is less severe. Additional measures to decrease throat pain include ice collars around the neck, popsicles, cold liquids, and chewing gum (but not Aspergum). DIET: You will probably not want to eat the day of surgery because it hurts to swallow. The day of surgery, all that is necessary is to drink liquids. This may be in the form of popsicles, jello, sherbert, etc. The day after surgery it is very important to begin to chew and swallow. Start with small pieces of bread, donuts, apples without the skin, etc. The sooner chewing and swallowing begin, the faster the recovery. You cannot damage your throat by swallowing solid foods, in fact it is good for the throat! There are no food restrictions, however sharp foods such as potato chips and rosas can cause pain. Drink plenty of fluids daily. TEMPERATURE: It is common to run a low-grade fever (99? ? 100? F, oral) for the first few days following surgery. This may be treated with Tylenol. A temperature greater than 101 usually is the result of early dehydration and means that your child needs more fluid. Call the office if the temperature does not decrease despite Tylenol and fluids. ACTIVITY: Generally, it is advisable to keep a low level of activity for the first 26-48 hours following their T&A. You will feel tired and lack energy for the first day or two after surgery. As you begin to feel better, activity can slowly be increased. Vigorous activity should be avoided for 7-14 days following the T&A. Most adults can return to full activity 10-14 days after surgery. BLEEDING: Bleeding following a T&A is rare. The most common time to bleed is the day of surgery. The second most common time is approximately 5-10 days following surgery, when the scabs begin to loosen and fall off. During this time, you may spit up some blood tinged saliva. If this persists longer than 5-10 minutes, call the office. If brisk bleeding occurs, go immediately to the nearest Emergency Room where your doctor will be notified at once. BAD BREATHE: Bad breathe following T&A is common. The whitish patches on the back of you throat are not infection. These are scabs that form in the area where the tonsils were removed. The whitish discoloration is from them being wet with salvia. These scabs can cause bad breath as they degenerate and eventually fall off. If the bad breath becomes particularly offensive, you may gargle with a weak saltwater solution (1/4 tsp of table salt in 8 oz of water) 3-4 times a day. FOLLOW-UP: If you do not already have a follow-up appointment, please call the office one or two days after your T&A to schedule a return visit. This should be 7-10 days following surgery. If you have any questions concerning your surgery, do not hesitate to call the office at . Reviewed: 03/16 Normal [facility] Progress Note-Physicianon Progress Note-Physician Patient: COOKIE WEINER Age: 23 years Sex: Female : 2000 Associated Diagnoses: None Author: Manolo Garcia DO Postoperative Information Postoperative disposition: Postoperative disposition: To PACU. Optimetrix number: Optimetrix number [id number]. Anesthetic utilized: General. Health Status Allergies: Allergic Reactions (Selected) Severity Not Documented Latex- Swelling and itching. Current medications: (Selected) Inpatient Medications Ordered Lactated Ringers IV Vidhi 1000 mL 1,000 mL: 1,000 mL, IV, 150 mL/hr, Routine, Start date 02/08/23 6:00:00 EST, 6.7 hour(s), Total volume (mL): 1,000, 79.2 kg, 1.92, m2 Lactated Ringers IV Vidhi 1000 mL 500 mL: 500 mL, IV, 100 mL/hr, Routine, Start date 02/08/23 8:22:00 EST, 5 hour(s), Total volume (mL): 500, 79.2 kg, 1.92, m2 [place] 325 mg-5 mg oral tablet: 1 tab(s), Tab, Oral, q4hr PRN Pain, Routine, Start date 02/08/23 8:22:00 EST Zofran 4 mg/2 mL Injection: 4 mg = 2 mL, Injection, IV Push, q6hr PRN Nausea/Vomiting, Routine, Start date 02/08/23 8:22:00 EST, 02/08/23 8:22:00 EST meperidine 50 mg/mL Inj: 25 mg = 0.5 mL, Injection, IV Push, q4hr PRN Pain 8-10 for 5 day(s), Stop date 02/13/23 8:21:00 EST, Routine, Start date 02/08/23 8:22:00 EST, 02/08/23 8:22:00 EST Prescriptions Prescribed [place] 325 mg-5 mg oral tablet: 1 tab(s), Oral, q6hr for pain, 24 tab(s), Refill(s) 0, [id number], 166.7, cm, 01/27/23 11:47:00 EST, Height/Length Dosing, 79.2, kg, 01/27/23 11:47:00 EST, Weight Dosing Documented Medications Documented Isotretinoin (Eqv-Absorica) 40 mg oral capsule: 40 mg = 1 cap(s), Oral, Daily, Other (see comment) aripiprazole 2 mg Tab: 2 mg = 1 tab(s), Oral, Daily, Anxiety sertraline 50 mg Tab: 50 mg = 1 tab(s), Oral, Daily, Depression, Home Medications (4) Active aripiprazole 2 mg Tab 2 mg = 1 tab(s), Oral, Daily Isotretinoin (Eqv-Absorica) 40 mg oral capsule 40 mg = 1 cap(s), Oral, Daily [place] 325 mg-5 mg oral tablet 1 tab(s), PRN, Oral, q6hr sertraline 50 mg Tab 50 mg = 1 tab(s), Oral, Daily Problem list: All Problems Anxiety / SNOMED CT 99418956 / Confirmed Chronic bipolar disorder / SNOMED CT 68329681 / Confirmed Depression / SNOMED CT 95518331 / Confirmed IBS (irritable bowel syndrome) / SNOMED CT 54320792 / Confirmed Insomnia / SNOMED CT 871709388 / Confirmed Smoker / SNOMED CT 765460369 / Confirmed Added secondary to documentation in Social History. Unable to afford medication / SNOMED CT 111066656135431 / Possible Problem added automatically by Discern Expert based on clinical documentation Physical Examination Vital Signs 02/08/2023 8:54 EST Heart Rate Monitored 77 bpm SpO2 99 % 02/08/2023 8:53 EST Respiratory Rate 14 br/min 02/08/2023 8:53 EST Systolic Blood Pressure 110 mmHg Diastolic Blood Pressure 71 mmHg Mean Arterial Pressure, Monitered 84 mmHg 02/08/2023 8:45 EST Temperature Temporal Artery 36.9 DegC Heart Rate Monitored 73 bpm Respiratory Rate Monitored 15 br/min Systolic Blood Pressure 111 mmHg Diastolic Blood Pressure 70 mmHg Blood Pressure Location Right arm Mean Arterial Pressure, Cuff 84 mmHg SpO2 97 % 02/08/2023 8:40 EST Heart Rate Monitored 84 bpm Respiratory Rate Monitored 16 br/min Systolic Blood Pressure 121 mmHg Diastolic Blood Pressure 71 mmHg Blood Pressure Location Right arm Mean Arterial Pressure, Cuff 88 mmHg SpO2 98 % 02/08/2023 8:35 EST Heart Rate Monitored 95 bpm Respiratory Rate Monitored 11 br/min Systolic Blood Pressure 119 mmHg Diastolic Blood Pressure 70 mmHg Blood Pressure Location Right arm Mean Arterial Pressure, Cuff 86 mmHg SpO2 98 % FIO2 35 02/08/2023 8:30 EST Heart Rate Monitored 80 bpm Respiratory Rate Monitored 19 br/min Systolic Blood Pressure 114 mmHg Diastolic Blood Pressure 63 mmHg Blood Pressure Location Right arm Mean Arterial Pressure, Cuff 80 mmHg SpO2 97 % FIO2 35 02/08/2023 8:25 EST Heart Rate Monitored 89 bpm Respiratory Rate Monitored 26 br/min Systolic Blood Pressure 119 mmHg Diastolic Blood Pressure 63 mmHg Blood Pressure Location Right arm Mean Arterial Pressure, Cuff 82 mmHg SpO2 98 % FIO2 35 02/08/2023 8:21 EST Temperature Temporal Artery 36.5 DegC Heart Rate Monitored 89 bpm Respiratory Rate Monitored 28 br/min Systolic Blood Pressure 124 mmHg Diastolic Blood Pressure 74 mmHg Blood Pressure Location Right arm Mean Arterial Pressure, Cuff 91 mmHg SpO2 98 % FIO2 35 02/08/2023 8:15 EST Heart Rate Monitored 69 bpm bpm Respiratory Rate 8 br/min br/min Systolic Blood Pressure 96 mmHg mmHg Diastolic Blood Pressure 58 mmHg mmHg SpO2 99 % % 02/08/2023 8:10 EST Heart Rate Monitored 76 bpm bpm Respiratory Rate 14 br/min br/min Systolic Blood Pressure 96 mmHg mmHg Diastolic Blood Pressure 61 mmHg mmHg SpO2 99 % % 02/08/2023 8:05 EST Heart Rate Monitored 89 bpm bpm Respiratory Rate 15 br/min br/min Systolic Blood Pressure 102 mmHg mmHg Diastolic Blood Pressu (more content not included)... Normal [facility] Comment on above: Result Comment: Elec tronically Signed By: Manolo Garcia DO\.br\Date and Time Signed: 02/08/23 09:20 EST Progress Note-Physician Patient: COOKIE WEINER Age: 23 years Sex: Female : 2000 Associated Diagnoses: None Author: Manolo Garcia DO Preoperative Information Anesthesia history: Patient history: None. Family history+: None. Anesthesia results Informed consent: Signed by patient. Including risks, benefits, and alternatives related to the: Anesthetic plan, Postoperative pain management plan. Re-evaluation prior to induction: Manolo Garcia DO. Health Status Allergies: Allergic Reactions (Selected) Severity Not Documented Latex- Swelling and itching., Allergies (1) Active Reaction Latex Swelling Current medications: (Selected) Inpatient Medications Ordered Lactated Ringers IV Vidhi 1000 mL 1,000 mL: 1,000 mL, IV, 150 mL/hr, Routine, Start date 02/08/23 6:00:00 EST, 6.7 hour(s), Total volume (mL): 1,000, 79.2 kg, 1.92, m2 Documented Medications Documented Isotretinoin (Eqv-Absorica) 40 mg oral capsule: 40 mg = 1 cap(s), Oral, Daily, Other (see comment) aripiprazole 2 mg Tab: 2 mg = 1 tab(s), Oral, Daily, Anxiety sertraline 50 mg Tab: 50 mg = 1 tab(s), Oral, Daily, Depression, Home Medications (3) Active aripiprazole 2 mg Tab 2 mg = 1 tab(s), Oral, Daily Isotretinoin (Eqv-Absorica) 40 mg oral capsule 40 mg = 1 cap(s), Oral, Daily sertraline 50 mg Tab 50 mg = 1 tab(s), Oral, Daily , Medications (1) Active Scheduled: (0) Continuous: (1) Lactated Ringers 1,000 mL 1,000 mL, IV, 150 mL/hr PRN: (0) Problem list: All Problems Anxiety / SNOMED CT 06333621 / Confirmed Chronic bipolar disorder / SNOMED CT 89576550 / Confirmed Depression / SNOMED CT 47110403 / Confirmed IBS (irritable bowel syndrome) / SNOMED CT 11229230 / Confirmed Insomnia / SNOMED CT 521050094 / Confirmed Smoker / SNOMED CT 161558101 / Confirmed Added secondary to documentation in Social History. Unable to afford medication / SNOMED CT 179311717993852 / Possible Problem added automatically by Discern Expert based on clinical documentation, Active Problems (7) Anxiety Chronic bipolar disorder Depression IBS (irritable bowel syndrome) Insomnia Smoker Unable to afford medication Histories Past Medical History: No active or resolved past medical history items have been selected or recorded. Family History: No family history items have been selected or recorded. Procedure history: EGD - esophagogastroduodenoscopy (6083212364). Biopsy of breast (218276701). Social History Social & Psychosocial Habits Alcohol 01/27/2023 Use: Current Frequency: 1-2 times per month Substance Abuse 01/27/2023 Type: Marijuana Frequency: 1-2 times per year Tobacco 01/27/2023 Type: Vaping Comment: daily - 01/27/2023 10:46 - Ghada Crain RN Physical Examination No qualifying data available Airway: Mallampati classification: II (soft palate, fauces, uvula visible). Distance: Mentohyoid, Interincisive, Thyromental, Mentosternal, Adequate. HENT: Normocephalic. Respiratory: Lungs are clear to auscultation. Cardiovascular: Regular rhythm. Gastrointestinal: Soft. Review / Management Results review Plan [place] [employer]hesi[employer] (ASA) physical status classification: Class II. Anesthetic Preoperative Plan: Anesthesia General. Normal [facility] Comment on above: Result Comment: Elec tronically Signed By: Manolo Garcia DO.br\Date and Time Signed: 02/08/23 06:12 EST SEROLOGYOrdered By: Yeison Kurtz on 02-08-2023 HCG.beta subunit (U) [Moles/Vol] Negative Normal [facility] Man Sero U BetaHcg Qualon 02-08-2023 HCG.beta subunit (U) [Moles/Vol] Negative Normal [facility] Comment on above: Performed By: #### 2 [id number] ####[facility] [id number] [place] [address] Trice 01-27-2023 ALT 15 Int._Unit/L Normal 6-46 [facility] Comment on above: Performed By: #### 2 219607, 6033827, 1280149, 9012857, 4688770 ####[address] [address] Denis 01-27-2023 AST 16 Int._Unit/L Normal 5-43 [facility] Comment on above: Performed By: #### 2 388121, 1348742, 4163510, 0219419, 2203454 ####[address] [address] Auto Diffon 01-27-2023 Basophils/100 WBC (Bld) 1.3 % Normal 0.0-2.0 [facility] Comment on above: Order Comment: Order Added by Discern Expert. Performed By: #### 2 802272, 4654309, 8534225, 7529746, 8989048 ####[address] [address] Basophils/Leukocyte s Auto (Bld) [Pure # fraction] 0.1 E9/L Normal 0.0-0.2 [facility] Comment on above: Order Comment: Order Added by Discern Expert. Performed By: #### 2 210454, 6160380, 5517270, 3520907, 6306599 ####[address] [address] Eosinophils/100 WBC (Bld) 3.8 % Normal 0.0-8.0 [facility] Comment on above: Order Comment: Order Added by Discern Expert. Performed By: #### 2 787074, 5074487, 4482995, 7199577, 0165559 ####[address] [address] Eosinophils/Leukocy tammie Auto (Bld) [Pure # fraction] 0.3 E9/L Normal 0.0-0.5 [facility] Comment on above: Order Comment: Order Added by Discern Expert. Performed By: #### 2 322506, 1104420, 4964504, 6500957, 1622366 ####[facility] [address] [place] [address] Lymphocytes/100 WBC (Bld) 29.4 % Normal 14.0-50.0 [facility] Comment on above: Order Comment: Order Added by Discern Expert. Performed By: #### 2 471511, 4275956, 2084723, 0773010, 7842779 ####[address] [place] [address] Lymphocytes/Leukocy tammie Auto (Bld) [Pure # fraction] 2.3 E9/L Normal 1.0-4.0 [facility] Comment on above: Order Comment: Order Added by Discern Expert. Performed By: #### 2 417048, 3887263, 5305156, 0670212, 0969222 ####[address] [address] Monocytes/100 WBC (Bld) 9.2 % Normal 4.0-14.0 [facility] Comment on above: Order Comment: Order Added by Discern Expert. Performed By: #### 2 350094, 2441420, 0912466, 6227450, 2492753 ####[address] [address] Monocytes/Leukocyte s Auto (Bld) [Pure # fraction] 0.7 E9/L Normal 0.2-1.0 [facility] Comment on above: Order Comment: Order Added by Discern Expert. Performed By: #### 2 778372, 2643142, 0247277, 8285568, 2724671 ####[address] [place] [address] Neutrophils/100 WBC (Bld) 56.3 % Normal 36.0-75.0 [facility] Comment on above: Order Comment: Order Added by Discern Expert. Performed By: #### 2 114370, 5178229, 4876639, 7640617, 2232379 ####[address] [place] [address] Neutrophils/Leukocy tammie Auto (Bld) [Pure # fraction] 4.3 E9/L Normal 2.0-7.5 [facility] Comment on above: Order Comment: Order Added by Discern Expert. Performed By: #### 2 369092, 1505016, 6942599, 9968341, 2648485 ####[address] [place] [address] CBC w/ Auto Diffon Erythrocyte distribution width (RBC) [Ratio] 13.1 % Normal 10.9-14.2 [facility] Comment on above: Performed By: #### 2 756341, 3524206, 0768592, 0287323, 5559326 ####[address] [address] Hematocrit (Bld) [Volume fraction] 39.6 % Normal 34.0-46.0 [facility] Comment on above: Performed By: #### 2 912120, 1988745, 3471811, 1302758, 0025544 ####[address] [place] [address] Hemoglobin (Bld) [Mass/Vol] 13.2 g/dL Normal 12.0-16.0 [facility] Comment on above: Performed By: #### 2 446853, 6257554, 1065468, 9714870, 8633041 ####[address] [place] [address] MCH (RBC) [Entitic mass] 30.6 pg Normal 27.0-34.0 [facility] Comment on above: Performed By: #### 2 105544, 2627738, 6079646, 2378153, 7308718 ####[address] [place] [address] MCHC (RBC) [Mass/Vol] 33.4 g/dL Normal 31.4-36.0 [facility] Comment on above: Performed By: #### 2 742011, 6426786, 3748829, 4269881, 3402042 ####[facility] [address] [place] [address] MCV (RBC) [Entitic vol] 91.7 fL Normal 80.0-100.0 [facility] Comment on above: Performed By: #### 2 052170, 9160549, 8922380, 4251644, 4400965 ####[address] [place] [address] Platelet mean volume (Bld) [Entitic vol] 9.3 fL Normal 6.4-10.8 [facility] Comment on above: Performed By: #### 2 341889, 3254397, 9867804, 9952543, 1605236 ####[address] [address] Platelets (Bld) [#/Vol] 244.0 E9/L Normal 150.0-500. 0 [facility] Comment on above: Performed By: #### 2 101026, 4457998, 5010409, 5701467, 8522875 ####[address] [address] RBC (Bld) [#/Vol] 4.3 E12/L Normal 4.3-5.9 [facility] Comment on above: Performed By: #### 2 346131, 3244098, 6815692, 6221925, 6384858 ####[address] [address] WBC corrected for nucl RBC Auto (Bld) [#/Vol] 7.7 E9/L Normal 4.0-11.0 [facility] Comment on above: Performed By: #### 2 281704, 3571058, 8264517, 1000875, 4205668 ####[address] [address] CHEMISTRYOrdered By: SYSTEM SYSTEM on 01-27-2023 ALT 15 [iU]/d Normal 6 - 46 Int._Unit/ L Remisol Chem AST 16 [iU]/d Normal 5 - 43 Int._Unit/ L Remisol Chem Triglyceride [Mass/Vol] 67 mg/dL Normal <=149mg/dL Rem[facility] Chem Consent for Treatmenton 01-07 Consent for Treatment [id number]#[id number] Normal [facility] Consent for Treatment [id number]#[id number] Normal [facility] HEMATOLOGYOrdered By: SYSTEM SYSTEM on 01-27-2023 Basophils/100 WBC (Bld) 1.3 % Normal 0.0 - 2.0 % [facility]Auto[facility] Basophils/Leukocyte s Auto (Bld) [Pure # fraction] 0.1 E9/L Normal 0.0 - 0.2 E9/L [facility] Eosinophils/100 WBC (Bld) 3.8 % Normal 0.0 - 8.0 % [facility] Eosinophils/Leukocy tammie Auto (Bld) [Pure # fraction] 0.3 E9/L Normal 0.0 - 0.5 E9/L [facility] Lymphocytes/100 WBC (Bld) 29.4 % Normal 14.0 - 50.0 % [facility] Lymphocytes/Leukocy tammie Auto (Bld) [Pure # fraction] 2.3 E9/L Normal 1.0 - 4.0 E9/L [facility] Monocytes/100 WBC (Bld) 9.2 % Normal 4.0 - 14.0 % [facility] Monocytes/Leukocyte s Auto (Bld) [Pure # fraction] 0.7 E9/L Normal 0.2 - 1.0 E9/L [facility] Neutrophils/100 WBC (Bld) 56.3 % Normal 36.0 - 75.0 % [facility] Neutrophils/Leukocy tammie Auto (Bld) [Pure # fraction] 4.3 E9/L Normal 2.0 - 7.5 E9/L [facility] HEMATOLOGYOrdered By: Yeison Anne on 01-27-2023 Erythrocyte distribution width (RBC) [Ratio] 13.1 % Normal 10.9 - 14.2 % [facility] Hematocrit (Bld) [Volume fraction] 39.6 % Normal 34.0 - 46.0 % [facility] Hemoglobin (Bld) [Mass/Vol] 13.2 g/dL Normal 12.0 - 16.0 gm/dL [facility] MCH (RBC) [Entitic mass] 30.6 pg Normal 27.0 - 34.0 pg [facility] MCHC (RBC) [Mass/Vol] 33.4 g/dL Normal 31.4 - 36.0 gm/dL [facility] MCV (RBC) [Entitic vol] 91.7 fL Normal 80.0 - 100.0 fL [facility] Platelet mean volume (Bld) [Entitic vol] 9.3 fL Normal 6.4 - 10.8 fL [facility] Platelets (Bld) [#/Vol] 244.0 E9/L Normal 150.0 - 500.0 E9/L [facility] RBC (Bld) [#/Vol] 4.3 E12/L Normal 4.3 - 5.9 E12/L [facility] WBC corrected for nucl RBC Auto (Bld) [#/Vol] 7.7 E9/L Normal 4.0 - 11.0 E9/L [facility] Physician Orderon 01-27-2023 Physician Order [id number]#[id number] Normal [facility] Triglycerideson 01-27-2023 Triglyceride [Mass/Vol] 67 mg/dL Normal <=149 [facility] Comment on above: Performed By: #### 2 [id number], [id number] ####[facility] [address] [place] [address] Consent for Procedure/Surger yon 01-25-2023 Consent for Procedure/Surgery [id number]#[id number] Normal [facility] Quick Strepon 12-11-2022 S. pyogenes Org specific cx Ql (Throat) Negative [facility] [facility] Other Quick Strep [facility] [facility] [facility] Other PREG QUANT HCGon 12-29-2021 HCG QUANT <1 Normal [facility] Comment on above: Performed By: #### P REGQNT #### [facility] [address] [place] [address] Dr. Juan Manuel Bryan HCG RANGE SEE BELOW Normal [facility] Comment on above: Result Comment: 5-50 0.2-1 WEEK 50-500 1-2 WEEKS 100-5,000 2-3 WEEKS 500-10,000 3-4 WEEKS 1,000-50,000 4-5 WEEKS 10,000-100,000 5-6 WEEKS 15,000-200,000 6-8 WEEKS 10,000-100,000 2-3 MONTHS Performed By: #### P REGQNT #### [facility] [address] [place] [address] Dr. Juan Manuel Bryan Covid-19 PCR ([facility])on SARS-CoV-2 (COVID-19) RNA ALISHA+probe Ql (Unsp spec) Not detected Normal NOT DETECTED [facility] Comment on above: Result Comment: This test is not yet approved or cleared by the [place] FDA. When there are no FDA-approved or cleared tests available, and other criteria are met, FDA can make tests available under an emergency access mechanism called an Emergency Use Authorization (EUA). The EUA for this test is supported by the Rn Trauma of Health and Human Service's (HHS's) declaration that circumstances exist to justify the emergency use of in vitro diagnostics for the detection and/or diagnosis of the virus that causes COVID-19. This EUA will remain in effect (meaning this test can be used) for the duration of the COVID-19 declaration justifying emergency of IVDs, unless it is terminated or revoked by FDA (after which the test may no longer be used). When diagnostic testing is negative, the possibility of a false negative should be considered in the context of a patient's recent exposures and the presence of clinical signs and symptoms consistent with SARS-CoV-2. Performed By: #### C VDTBH #### [facility] [address] [place], [place] [id number] Dr. Juan Manuel Bryan INFLUENZA A AND B AGon 12-09 INFLUANEGH SEE BELOW Normal [facility] Comment on above: Result Comment: Nega tive for Flu A protein angiten. Infection due to Flu A cannot be ruled out. Flu A angiten in the sample may be below the detection limit of the test. Performed By: #### I NFLUAB #### [facility] [address] [place] [address] Dr. Juan Manuel Bryan [facility] SEE BELOW Normal [facility] Comment on above: Result Comment: Nega tive for Flu B protein antigen. Infection due to Flu B cannot be ruled out. Flu B antigen in the sample may be below the detection limit of the test. Performed By: #### I NFLUAB #### [facility] [address] [place] [address] Dr. Juan Manuel Bryan INFLUENZA A AG Negative Normal NEGATIVE SEE COMMENT [facility] Comment on above: Performed By: #### I NFLUAB #### [facility] [address] [place] [address] Dr. Juan Manuel Bryan INFLUENZA B AG Negative Normal NEGATIVE SEE COMMENT [facility] Comment on above: Performed By: #### I NFLUAB #### [facility] [address] [place] [address] Dr. Juan Manuel Bryan INTERNAL CONTROLS Within Normal Limits Normal Wi thin Normal Limits [facility] Comment on above: Performed By: #### I NFLUAB #### [facility] [address] [place] [address] Dr. Juan Manuel Bryan HCG,Urineon 02-24-2021 Beta HCG ( test) Ql (U) Negative Normal [facility] Comment on above: Result Comment: PERF ORMED BY: [place] [address] PATHOLOGIST DANDY OPERATOR MALORIE MICHELE M.D. Performed By: #### U HCG #### [address] COVID-19 [place] [facility] [place] SARS-CoV-2 (COVID-19) RNA ALISHA+probe Ql (Unsp spec) Negative Normal Negative [facility] Comment on above: Order Comment: Healt hcare Worker?: N Result Comment: Testing for SARS-CoV-2 by RT-PCR This test was developed and its performance characteristics determined by [facility]) and validated at the [facility]. This test has not been FDA cleared or approved. This test has been authorized by FDA under an Emergency Use Authorization (EUA). This test has been validated in accordance with the FDA's Guidance Document (Policy for Diagnostics Testing in Laboratories Certified to Perform High Complexity Testing under CLIA prior to Emergency Use Authorization for Coronavirus Disease-2019 during the Public Health Emergency) issued on May 09, 2019. This test is only authorized for the duration of time the declaration that circumstances exist justifying the authorization of the emergency use of in vitro diagnostic tests for detection of SARS-CoV-2 virus and/or diagnosis of COVID-19 infection under section 564(b)(1) of the Act, 21 U.S.C. 360bbb-3(b)(1), unless the authorization is terminated or revoked sooner. PERFORMED BY: [place] [address] PATHOLOGIST DANDY OPERATOR MALORIE MICHELE M.D. Performed By: #### C OVID 19 [place] [facility] [place] #### [address] Vital Signs Date Time Vital Sign Value Performing Clinician Facility 02-08-2023 09:48-0500 Heart rate 70 /min Kevin Choi [facility] 02-08-2023 09:48-0500 SaO2% (BldA) [Mass fraction] 98 % Kevin Choi [facility] 02-08-2023 09:48-0500 Diastolic blood pressure 73 mm[Hg] Kevin Choi [facility] 02-08-2023 09:48-0500 Mean blood pressure 85 mm[Hg] Kevin Choi [facility] 02-08-2023 09:48-0500 Systolic blood pressure 108 mm[Hg] Kevin Choi [facility] 02-08-2023 09:48-0500 Respiratory rate 16 /min Kevin Choi [facility] 02-08-2023 09:48-0500 Body temperature 97.7 [degF] Kevin Choi [facility] 02-08-2023 08:54-0500 Heart rate 77 /min Kevin Choi [facility] 02-08-2023 08:54-0500 SaO2% (BldA) [Mass fraction] 99 % Kevin Choi [facility] 02-08-2023 08:53-0500 Respiratory rate 14 /min Kevin Choi [facility] 02-08-2023 08:53-0500 Diastolic blood pressure 71 mm[Hg] Kevin Choi [facility] 02-08-2023 08:53-0500 Mean blood pressure 84 mm[Hg] Kevin Choi [facility] 02-08-2023 08:53-0500 Systolic blood pressure 110 mm[Hg] Kevin Choi [facility] 02-08-2023 08:53-0500 Body temperature 97.7 [degF] Kevin Choi [facility] 02-08-2023 08:53-0500 SaO2% (BldA) [Mass fraction] 98 % Kevin Choi [facility] 02-08-2023 08:45-0500 Blood Pressure Location Kevin Choi [facility] 02-08-2023 08:45-0500 Body temperature 98.42 [degF] Kevin Choi [facility] 02-08-2023 08:45-0500 Diastolic blood pressure 70 mm[Hg] Kevin Marquezeddequan [facility] 02-08-2023 08:45-0500 Heart rate 73 /min Kevin Marquezeddequan [facility] 02-08-2023 08:45-0500 Mean blood pressure 84 mm[Hg] Kevin Marquezeddequan [facility] 02-08-2023 08:45-0500 Respiratory rate 15 /min Kevin Marquezeddequan [facility] 02-08-2023 08:45-0500 Systolic blood pressure 111 mm[Hg] Kevin Marquezeddequan [facility] 02-08-2023 08:40-0500 Blood Pressure Location Kevin Marquezeddequan [facility] 02-08-2023 08:40-0500 Mean blood pressure 88 mm[Hg] Kevin Choi [facility] 02-08-2023 08:40-0500 Respiratory rate 16 /min Kevin Choi [facility] 02-08-2023 08:35-0500 Blood Pressure Location Kevin Choi [facility] 02-08-2023 08:35-0500 FIO2 35 1 Kevin Marquezeddequan [facility] 02-08-2023 08:35-0500 Mean blood pressure 86 mm[Hg] Kevin Marquezeddequan [facility] 02-08-2023 08:35-0500 Respiratory rate 11 /min Kevin Marquezeddequan [facility] 02-08-2023 08:30-0500 FIO2 35 1 Kevin Marquezeddequan [facility] 02-08-2023 08:25-0500 FIO2 35 1 Kevin Choi [facility] 02-08-2023 08:15-0500 Respiratory rate 8 /min Kevin Choi [facility] 02-08-2023 06:14-0500 Mean blood pressure 85 mm[Hg] Kevin Choi [facility] 02-08-2023 06:13-0500 Heart rate 78 /min Kevin Choi [facility] 02-08-2023 06:12-0500 Body temperature 97.88 [degF] Kevin Choi [facility] 01-27-2023 10:55-0500 Diastolic blood pressure 72 mm[Hg] Kevin Choi [facility] 01-27-2023 10:55-0500 Heart rate 85 /min Kevin Choi [facility] 01-27-2023 10:55-0500 Mean blood pressure 85 mm[Hg] Kevin Choi [facility] 01-27-2023 10:55-0500 Systolic blood pressure 112 mm[Hg] Kevin Choi [facility] 01-27-2023 10:54-0500 Heart rate 81 /min Kevin Choi [facility] 01-27-2023 10:54-0500 SaO2% (BldA) [Mass fraction] 99 % Kevin Choi [facility] 01-27-2023 10:54-0500 Diastolic blood pressure 69 mm[Hg] Kevin Choi [facility] 01-27-2023 10:54-0500 Mean blood pressure 80 mm[Hg] Kevin Choi [facility] 01-27-2023 10:54-0500 Systolic blood pressure 103 mm[Hg] Kevin Choi [facility] 01-27-2023 10:54-0500 Body temperature 98.24 [degF] Kevin Choi [facility] 12-11-2022 11:30-0500 Body height 167.64 cm Lauren Hyde Other [facility] [employer] Other 12-11-2022 11:30-0500 Body mass index (BMI) [Ratio] 27.69 kg/m2 Lauren Hyde Other [facility] [facility] Other 12-11-2022 11:30-0500 Body temperature 98.4 [degF] Lauren Hyde Other [facility] [facility] Other 12-11-2022 11:30-0500 Body weight 77.84 kg Lauren Hyde Other [employer] [facility] [facility] Other 12-11-2022 11:30-0500 Respiratory rate 18 /min Lauren Hyde Other [employer] Other 12-11-2022 11:30-0500 SaO2% (BldA) [Mass fraction] 98 % Lauren Hyde Other [employer] Other 08-26-2021 10:30-0400 Body height 167.64 cm Tima Jackman Other [employer] [facility] Other 08-26-2021 10:30-0400 Body mass index (BMI) [Ratio] 21.63 kg/m2 Tima Jackman Other [employer] Other 08-26-2021 10:30-0400 Body weight 60.78 kg Tima Jackman Other [employer] [facility] Other 02-08-2021 16:45-0500 Body height 167.64 cm Tima Jackman Other [employer] Other 02-08-2021 16:45-0500 Body mass index (BMI) [Ratio] 20.5 kg/m2 Tima Jackman Other [employer] Other 02-08-2021 16:45-0500 Body weight 57.61 kg Tima Jackman Other [employer] Other Encounters Encounter Date Encounter Type Care Provider Facility Start: 02-14-2023 End: 02-14-2023 ambulatory KEVIN CHOI Not Available Start: 02-08-2023 End: 02-08-2023 ambulatory Kevin Choi Facility:[facility] Start: 02-08-2023 End: 02-08-2023 Admission to same day surgery center Kevin Choi [facility] Start: 01-27-2023 End: 01-28-2023 ambulatory GREER PAYNE Facility:[facility] Start: 01-27-2023 End: 01-28-2023 ambulatory Kevin Choi Facility:[facility] Start: 01-27-2023 End: 01-27-2023 Patient encounter procedure GREER PAYNE [facility] Start: 01-27-2023 End: 01-27-2023 Patient encounter procedure Kevin Choi [facility] Start: 01-17-2023 End: 01-17-2023 ambulatory KEVIN CHOI Not Available Start: 12-11-2022 End: 12-11-2022 ambulatory Lauren Hyde Other [employer] Other Start: 12-11-2022 Office outpatient visit 25 minutes Lauren Hyde [facility] Start: 12-29-2021 End: 12-30-[address] PRANAY MORSE Facility:[facility] Start: 12-09-2021 End: 12-09-[address] ADIS HATHAWAY Facility:[facility] Start: 08-26-2021 End: 08-26-2021 ambulatory Tima Jackman Other [facility] [facility] Other Start: 08-26-2021 Office outpatient visit 25 minutes Tima Jackman [facility] Start: 02-08-2021 End: 02-08-2021 ambulatory Tima Jackman Other [employer] [facility] Other Start: 02-08-2021 Office outpatient ne w 45 minutes Tima Jackman [facility] Procedures Date Procedure Procedure Detail Performing Clinician Start: 02-08-2023 Tonsillectomy Kevin Jimmyshelbie baires Biopsy of breast Kevin [place] osiel Esophagogastroduodenoscopy P aul Jimbo Payers Date Payer Category Payer Unknown 2022 [facility] [id number] 2000 Unknown [id number] 2000 Unknown [id number] 2.16.84 [id number] 2000 Unknown [id number] 2.16.8 [id number] 2000 Unknown [id number] 2.16.8 [id number] 2000 Unknown [id number] 2.16.8 [id number] 2000 Unknown [id number] 2.16.84 [id number] 2000 Unknown [id number] 1959 [facility] [id number] Social History Date Type Detail Facility Sex Assigned At [facility] Tobacco Vaping [facility] Comment on above: daily Tobacco smoking status No Smokin g Status Entered [facility] Functional Status Date Assessment Result Facility 01-27-2023 Functional Status No [facility] Clinical Notes 02-08-2021 to 02-08-2023 Note Date & Type Note Facility 02-08-2023 Evaluation + Plan note Extrac kaylyn from: Title:ANES Post General Author:Wilfredo Garcia DO Date:02/08/23 Plan Transfer/Discharge: Patient exhibiting no signs of N/V. Hydration status is adequate. Extracted from: Title:Jose Basic PRE Author:Devyn Garcia DO Date:02/08/23 Plan [place] [employer] (ASA) physical status classification: Class II. Anesthetic Preoperative Plan: Anesthesia General. [facility]01-03[facility]2024 Hospital Discharge instructions Patient Education 02/08/2023 08:41:00 Jimbo-Tonsillectomy & Adenoidectomy Adult(CUSTOM) [place], [place] Kevin Choi DO DISCHARGE INSTRUCTIONS: TONSILLECTOMY & ADENOIDECTOMY (T&A) (Adult) The following information is to help you understand what to expect following a T&A. PAIN: Throat pain can be quite severe immediately following a T&A. The same nerves that go to the tonsils also go to the ears. It is common to experience pain in the ears between the 3rd and 7th days following the T&A. The pain medication which was prescribed should help lessen the pain, although it may not completely take it away. The sooner chewing and swallowing begins, the quicker thepain will subside. Take the pain medication as needed in the prescribed dosage. DO NOT take Ibuprofen, Aleve, Advil, Motrin, or product containing aspirin! These medications can increase the chances of bleeding. Tylenol is a good choice when the pain is less severe. Additional measures to decrease throat pain include ice collars around the neck, popsicles, cold liquids, and chewing gum (but not Aspergum). DIET: You will probably not want to eat the day of surgery because it hurts to swallow. The day of surgery, all that is necessary is to drink liquids. This may be in the form of popsicles, jello, sherbert, etc. The day after surgery it is very important to begin to chew and swallow. Start with small pieces of bread, donuts, apples without the skin, etc. The sooner chewing and swallowing begin, the faster the recovery. You cannot damage your throat by swallowing solid foods, in fact it is good for the throat! There are no food restrictions, however sharp foods such as potato chips and rosas can cause pain. Drink plenty of fluids daily. TEMPERATURE: It is common to run a low-grade fever (99 100 F, oral) for the first few days following surgery. This may be treated with Tylenol. A temperature greater than 101 usually is the result ofearly dehydration and means that your child needs more fluid. Call the office if the temperature does not decrease despite Tylenol and fluids. ACTIVITY: Generally, it is advisable to keep a low level of activity for the first 26-48 hours following their T&A. You will feel tired and lack energy for the first day or two after surgery. As you begin to feel better, activity can slowly be increased. Vigorous activity should be avoided for 7-14 days following the T&A. Most adults can return to full activity 10-14 days after surgery. BLEEDING: Bleeding following a T&A is rare. The most common time to bleed is the day of surgery. The second most common time is approximately 5-10 days following surgery, when the scabs begin to loosen and fall off. During this time, you may spit up some blood tinged saliva. If this persists longer than 5- 10 minutes, call the office. If brisk bleeding occurs, go immediately to the nearest Emergency Room where your doctor will be notified at once. BAD BREATHE: Bad breathe following T&A is common. The whitish patches on the back of you throatare not infection. These are scabs that form in the area where the tonsils were removed. The whitish discoloration is from them being wet with salvia. These scabs can cause bad breath as they degenerate and eventually fall off. If the bad breath becomes particularly offensive, you may gargle with a weak saltwater solution (1/4 tsp of table salt in 8 oz of water) 3-4 times a day. FOLLOW-UP: If you do not already have a follow-up appointment, please call the office one or two days after your T&A to schedule a return visit. This should be 7-10 days following surgery. If you have any questions concerning your surgery, do not hesitate to call the office at . Reviewed: 03/1602/08/2023 08:40:54 Post Op Patient Instructions - FT (Custom) (CUSTOM) Follow Up Care 01/24/2023 09:42:34 With:Kevin Choi Address: [address] [phone] Business (1) When: Unknown [facility]12-20-2023 Note [id number] Encounter Date Diagnosis Assessment Notes Treatment Notes Treatment Clinical Notes Dec, Sore throat (ICD-10 - J02.9) Dec, Acute non-recurrent maxillary sinusitis (ICD-10 - J01.00) Advised patient that rapid Strep test was negative today in office. Discussed diagnosis with patient. Will today for bacterial sinusitis based on physical exam and duration of symptoms. Take antibiotic as prescribed, complete entire course of therapy even if symptoms resolve. Reviewed allergies and recent antibiotic use with patient. Advised patient to take OTC Mucinex Velasquez directed, OTC Flonase. Supportive care as directed, push fluids and rest, Tylenol and/or Motrin as directed for discomfort/fever, warm moist compress over sinuses several times a day, cool mist humidification, nasal saline spray as directed. Symptoms should improve in the next 3 days, if symptoms persist follow up with PCP. Immediate eval for warning s/sx as discussed. Patient verbalizes understanding and is agreeable to treatment plan [employer] Other 07-21-2022 Evaluation note* Encounter Date Diagnosis Assessment Notes Treatment Notes Treatment Clinical Notes Aug, GERD (gastroesophageal reflux disease) (ICD-10 - K21.9) STOP PANTOPRAZOLE START CARAFATE 1 GRAM BID Aug, Irritable bowel syndrome with both constipation and diarrhea (ICD-10 - K58.2) Aug, Hemorrhoid (ICD-10 - K64.9) START ANUSOL HC CREAM BID FOR 14 DAYS Aug, Other STOP DICYCLOMINE [facility] [employer] Other 01-03-2022 Evaluation note* Encounter Date Diagnosis Assessment Notes Treatment Notes Treatment Clinical Notes Feb, RUQ abdominal pain (ICD-10 - R10.11) Feb, GERD (gastroesophageal reflux disease) (ICD-10 - K21.9) Feb, Nausea & vomiting (ICD-10 - R11.2) Feb, Diarrhea (ICD-10 - R19.7) Feb, Family history of Crohn's disease (ICD-10 - Z83.79) [facility] Other Evaluation + Plan note Future Appointments Appointment Date:02/08/2023 08:00:00 AM Scheduled Provider: Location:[facility] - [facility]orted* Type Description Date Medical History GERD Medical History anxiety [facility] [employer] Other History general Narrative - Reported* Type Description Date Medical History GERD Medical History anxiety Medical History acne Surgical History BIOPSY OF RIGHT BREAST [facility] [employer] Other Hospital course Narrative No data available for this section [facility] instructions No data available for this section [facility] No data available for this section [facility]Reason for visit NarrativePT HERE AT REQUEST OF RADHA PURDY FOR EVALUATION AND TREATMENT OF RIGHT UPPER QUADRANT PAIN, REFER RAL NOTE [employer] Other Summary Purpose Family History No Family History Records FoundNo Family History Records Found No data available for this section No data available for this section No data available for this section No Family History Records FoundNo Family History Records Found Advance Directives No Advanced Directives Records FoundNo Advanced Directives Records FoundNo Advanced Directives Records FoundNo Advanced Directives Records Found Additional Source Comments INFORMATION SOURCE (unrecogn ized section and content) DATE CREATED AUTHOR 03/10/2021 [facility] DATE CREATED AUTHOR AUTHOR'S ORGANIZ ATION 01/04/2022 [facility] DATE CREATED AUTHOR AUTHOR'S ORGANIZ ATION 02/14/2023 Lima Eaton [facility] DATE CREATED AUTHOR AUTHOR'S ORGANIZ ATION 02/15/2023 [facility] EPIC REASON FOR VISIT (unrecogniz ed section and content) PATIENT COMPLAINING OF ALTER NATING DIARRHEA & CONSTIPATIPATION, SHE IS TAKING PANTORPAZOLE FOR GERD, SHE DOES NOT FEEL IMPROVED ON THIS, TAKING TUMS FOR INTERMITTENT BREAK THROUGHSORE THROAT Patient Care team informatio n (unrecognized section and content) Personnel Name: RADHA PURDY CNP Address: Address: [address] [place] [address] [address] Personnel Name: RADHA PURDY CNP Address: Address: [address] [place] [address] [address] Personnel Name: RADHA PURDY CNP Anshu Address: Address: [address] [place] [address] FOR RECORDS PERTAINING TO PATIENTS WHO ARE OR HAVE BEEN ENROLLED IN A CHEMICAL DEPENDENCY/SUBSTANCEABUSE PROGRAM, SOME INFORMATION MAY BE OMITTED. This clinical summary was aggregated from multiple sources. Caution should be exercised in using it in the provision of clinical care. This summary normalizes information from multiple sources, and as a consequence, information in this document may materially change the coding, format and clinical context of patient data. In addition, data may be omitted in some cases. CLINICAL DECISIONS SHOULD BE BASED ON THE PRIMARY CLINICAL RECORDS. [facility]. provides no warranty or guarantee of the accuracy or completeness of information in this document.
[2023-06-07 14:09] LABS: Pap IG (Image Guided) Note (.)
== END 2023-05-31 20:46 | disposition home or self-care (01) ==
LOC: LAB 20:45
PROVIDERS: PCP Nurse Practitioner Family; Visit Provider Obstetrics & Gynecology
DX: R87.612 Low grade squamous intraepithelial lesion on cytologic smear of cervix (LGSIL) (principal)
CPT/HCPCS: G0145

== ENCOUNTER 2024-08-12 19:28 | Outpatient (REF) | payer OTHER, SELFPAY ==
--- OUTSIDE RECORDS SUMMARY | 2024-07-03 05:30 | XMS_ITS ---
Author Organization [facility] in [place] Address [address] [place] [address] Care Team Providers Care C 40A Crew Chief Name Role Phone Natalia Swain Primary Care Provider [phone] Allergies Allergen (clinical drug ingredient) Drug/Non Drug Allergy documented on EMR Reaction Allergy Type Onset Date Status Vagisil facial swelling Drug Allergy A ctive REASON FOR VISIT presents to office alone to discuss weight loss options Medications Medication SIG (Take, Route, Fr equency, Duration) Notes Start Date End Date Status ARIPiprazole 2 MG TAKE 1 TABLET BY JASMINA TH EVERY DAY FOR 90 DAYS for 90 Active Sertraline HCl 50 MG 1 tablet Orally Onc e a day Orally Once a day for 90 days Ac tive Adipex-P 37.5 MG 1 tablet before isidro kfast Orally Once a day for 30 days 07/03/2024 Ac tive Social History Tobacco Use: Social History Observation Description Date Details (start date - stop date) Never Smoker NA - NA Tobacco Use/Smoking Question Answer Notes Patient is a nonsmoker Tobacco use other than smoking: Question Answer Notes Are you an other tobacco user? V ape daily AUDIT-C (Standard) Question Answer Notes Did you have a drink contain ing alcohol in the past year? Yes How often did you have a dri nk containing alcohol in the past year? Never (0 point) How many drinks did you have on a typical day when you were drinking in the past year? 3 or 4 drinks (1 point) How often did you have six o r more drinks on one occasion in the past year? 2 to 4 times a month (2 points) Points 3 Interpretation Positive Problems Problem Type SNOMED Code ICD Code Onset Dates Problem Status W/U Status Risk Notes Problem Class 1 obesity (E66.9) Active confirmed Vital Signs Weight 198.4 lbs 07/03/2024 Height 66 in 07/03/2024 Blood pressure systolic 118 mm Hg 07/04/19 25 Blood pressure diastolic 78 mm Hg 025 BMI 32.02 kg/m2 07/03/2024 Encounters Encounter Location Date Provider Diagnosis [facility] [address] [place] [address] 07/03/2024 Natalia Swain Class 1 obesity E66.9 Assessments Encounter Date Diagnosis (ICD Code) Assessment Notes Treatment Notes Treatment Clinical Notes Section Notes 07/03/2024 Class 1 obesity (ICD-10 - E66.9) stop med if SE work on diet, activity fu 1 month CSA signed OARRS reviewed Plan Of Treatment Medication Medication Name Sig Start Date Stop Date Notes Adipex-P 37.5 MG 1 tablet before isidro kfast Orally Once a day for 30 days 07/03/2024 Treatment Notes Assessment Notes Class 1 obesity stop med if SE work on diet, activity fu 1 month CSA signed OARRS reviewed Next Appt Details Follow Up: 4 Weeks,prn, Reas on: Progress Notes * Kristin GARCIAcarolyn SchneiderDOB:[birth year] (24 yo F)Acc No.[id number]:07/03/2024 Progress Note Patient: Nadia CALDERON Provider: Nacho Swain ([facility]), PROGRAM TRAINER :2000 A ge:24 Y S ex:Female Date:07/03/2024 Address:[address] [place], [place] [id number] Check In:09:28 AM ESTCheck O ut:10:40 AM EST Subjective: * Chief Complaints: * 1 . Presents to office alone to discuss weight loss options. * HPI: G eneral: has tried working out and eating better not losing wt tried int fasting has gained 30 lbs since August. * ROS: G eneral/Constitutional: Patient complaining of u nable to lose wt. F ever d enies. H eadache d enies. W eight loss d enies. O phthalmologic: Discharge d enies. E ye Pain d enies. I tching and redness d enies. E NT: Nasal discharge d enies. N ezekiel congestion d enies.?Sore throat d enies. C ardiovascular: Chest tightness/ heavy pressure d enies. R apid heart rate d enies. S welling of extremities d enies. C hest pain d enies. ? R espiratory: Productive cough d enies. C hest pain d enies. C ough d enies. S hortness of breath d enies. W heezing d enies. ? G astrointestinal: Abdominal pain d enies. C onstipation d enies. D ecreased appetite d enies. D iarrhea d enies. N ausea d enies. V omiting?denies. G enitourinary: Urinary incontinence d enies. P ainful urination d enies. M usculoskeletal: Back pain d enies. N suad pain d enies. M uscle aches d enies. S kin: Rash d enies. S kin lesion(s) d enies. ? * Active Problem List R87.612 Low grade squamous i ntraepithelial lesion on cytologic smear of cervix (LGSIL) Modified On:11/02/2022/U Status:confirmed D24.9 Benign neoplasm of u nspecified breast Modified On:11/28/2022/U Status:confirmed K58.9 Irritable bowel synd giorgio without diarrhea Modified On:12/06/2022/U Status:confirmed J35.1 Hypertrophy of tonsi ls Modified On:12/06/2022/U Status:confirmed J32.9 Sinusitis Modified On:06/25/2024/U Status:confirmed E66.9 Class 1 obesity Modified On:07/03/2024/U Status:confirmed * Medical History: C yst of breast, right, Cyst of left breast, Allergic rhinitis, Endometriosis, Insomnia, COVID-19, Anxiety, GERD (gastroesophageal reflux disease), RUQ pain, Sebaceous cyst, Depression, Miscarriage. * Surgical History: B iopsy- Right Breast 11/2022, Tonsillectomy . * Family History: F ather: , depression, bipolar, anxiety. M other: alive, depression, bipolar, anxiety. B rother(s): alive, Bipolar depression, anxiety, bipolar. S ister(s): alive, Bipolar depression, anxiety, bipolar. M aternal Grandfather: Colon cancer. M aternal Grandmother: stroke. M aternal uncle: Brain Cancer- 50 years old. M aternal aunt: breast cancer. P aternal Grandfather: diagnosed with Other malignant neoplasm of unspecified site. 3 brother(s) , 3 sister(s) . . HEart issues on dads side- unknoon for sure who. * Social History: T obacco Use: T obacco use other than smoking A re you an other tobacco user? V ape daily Tobacco Use/Smoking P atient is a n onsmoker D rug/Alcohol: A SAYDA-C (Standard) D id you have a drink containing alcohol in the past year? Y es H ow often did you have a drink containing alcohol in the past year? N ever (0 point) H ow many drinks did you have on a typical day when you were drinking in the past year? 3 or 4 drinks (1 point) H ow often did you have six or more drinks on one occasion in the past year? 2 to 4 times a month (2 points) P oints 3 I nterpretation P ositive * Medications: T aking ARIPiprazole 2 MG Tablet TAKE 1 TABLET BY MOUTH EVERY DAY FOR 90 DAYS , Taking Sertraline HCl 50 MG Tablet 1 tablet Orally Once a day Orally Once a day , Discontinued predniSONE 20 MG Tablet 2 tablet Orally Once a day , Medication List reviewed and reconciled with the patient * Allergies: V agisil: facial swelling - Allergy. Objective: * Vitals: W t:198.4lbs, Ht: 66 in, BP:118/78mm Hg, BMI:32.02Index, Ht-cm: 167.64 cm, Wt-k.99 kg. * Examination: G eneral Examinations: GENERAL APPEARANCE: a lert and oriented, i n no acute distress. EYES: c onjunctiva normal, sclera non-icteric. NOSE: n ormal external appearance. LUNGS: c lear to auscultation bilaterally. CARDIO: r egular rate and rhythm, S1, S2 normal. MUSCULOSKELETAL: G ait and station normal. SKIN: w arm and dry. Assessment: * Assessment: 1. C lass 1 obesity - E66.9 (Primary) Plan: * Treatment: * Preventive Medicine: Screenings/Counseling: B MD ACTION PLAN Above Normal BMI Follow-up D ietary management education, guidance, and counseling See treatment section of progress note for complete details of management plan. * Follow Up: 4 Weeks,prn * * Electronically signed by Jeanne Swain NP, FACILITY ADMINISTRATOR.PROGRAM TRAINER.[id number] on 07/05/2024 at 10:28 AM EDT Sign off status: Completed Visit Status: C HK (Check Out) true * Provider: Nacho Swain ([facility]), PROGRAM TRAINER Date: 07/03/2024 Generated for Magnolia couch/Marcos/eTransmitting on: 08/12/2024 07:31 PM EDT History and Physical Notes * HPI (History of Present Illness) Category Sub-Category Detail Notes Category Not es General has tried working out and eating better not losing wt tried int fasting has gained 30 lbs since August new relationship Examination Category Sub-Category Detail Notes Category Not es General Examinations GENERAL APPEARANCE: alert a nd oriented, in no acute distress EYES: conjunctiva normal, sclera non-icteric EARS: NOSE: normal external appe arance THROAT: CARDIO: regular rate and rhy thm, S1, S2 normal LUNGS: clear to auscultatio n bilaterally ABDOMEN: SKIN: warm and dry BACK: MUSCULOSKELETAL: Gait and station nor mal LYMPH NODES:
--- OUTSIDE RECORDS SUMMARY | 2024-08-05 03:59 | XMS_ITS ---
Author Organization [facility] in [place] Address [address] [place] [address] Care Team Providers Care Pottery Kiln Builder Name Role Phone Natalia Swain Primary Care Provider [phone] REASON FOR VISIT f/u Encounters Encounter Location Date Provider Diagnosis [facility] [address] [place] [address] 08/05/2024 Natalia Swain Plan Of Treatment No Information Progress Notes * Nadia GARCIADOB:[birth year] (24 yo F)Acc No.[id number]:08/05/2024 Patient: Nadia CALDERON :2000 A ge:24 Y S ex:Female Address:[address] [place] [id number] * true * Date: Generated for Mareki iza/Favikramg/eTransmitting on: 0 08/12/2024 07:31 PM EDT
--- OUTSIDE RECORDS SUMMARY | 2024-08-07 05:00 | XMS_ITS ---
Author Organization [facility] in [place] Address [address] [place] [address] Care Team Providers Care Data Governance Analyst Name Role Phone Natalia Swain Primary Care Provider [phone] Allergies Allergen (clinical drug ingredient) Drug/Non Drug Allergy documented on EMR Reaction Allergy Type Onset Date Status Vagisil facial swelling Drug Allergy A ctive REASON FOR VISIT Presents to office alone for 1 month f/u on Adipex. Stopped medication during the third week d/t indigestion Medications Medication SIG (Take, Route, Fr equency, Duration) Notes Start Date End Date Status Sertraline HCl 50 MG 1 tablet Orally Onc e a day Orally Once a day for 90 days Ac tive Omeprazole 20 MG 1 capsule 1/2 to 1 h our before morning meal Orally Once a day for 30 days 08/07/2024 Active ARIPiprazole 2 MG TAKE 1 TABLET BY JASMINA TH EVERY DAY FOR 90 DAYS for 90 Active Social History Tobacco Use: Social History Observation [...] Problem Status W/U Status Risk Notes Problem Anxiety and depression (F41.8) Active confirmed Problem Gastroesophageal reflux disease (310062254) GERD (gastroesophag eal reflux disease) (K21.9) Active confirmed Vital Signs Weight 187.8 lbs 08/07/2024 Height 66 in 08/07/2024 Blood pressure systolic 112 mm Hg 08/08/19 25 Blood pressure diastolic 74 mm Hg 025 BMI 30.31 kg/m2 08/07/2024 Encounters Encounter Location Date Provider Diagnosis [facility] [address] [place] [address] 08/07/2024 Natalia Swain Anxiety and depression F41.8 ; GERD (gastroesophageal reflux disease) K21.9 and Class 1 obesity E66.9 Assessments Encounter Date Diagnosis (ICD Code) Assessment Notes Treatment Notes Treatment Clinical Notes Section Notes 08/07/2024 Anxiety and depression (ICD-10 - F41.8) 08/07/2024 GERD (gastroesophage al reflux disease) (ICD-10 - K21.9) 08/07/2024 Class 1 obesity (ICD-10 - E66.9) work on diet if wants to continue adipex, try 1/2 pill fu as needed Plan Of Treatment Medication Medication Name Sig Start Date Stop Date Notes Sertraline HCl 50 MG 1 tablet Orally Onc e a day Orally Once a day for 90 days Omeprazole 20 MG 1 capsule 1/2 to 1 h our before morning meal Orally Once a day for 30 days 08/07/2024 ARIPiprazole 2 MG TAKE 1 TABLET BY JASMINA TH EVERY DAY FOR 90 DAYS for 90 Treatment Notes Assessment Notes Class 1 obesity work on diet if wants to continue adipex, try 1/2 pill fu as needed Next Appt Details Follow Up: prn, Reason: Progress Notes * Nadia GARCIADOB:[birth year] (24 yo F)Acc No.[id number]:08/07/2024 Progress Note Patient: Nadia CALDERON Jennie Provider: Nacho Swain ([facility]), MACHINE COMPOSITOR :2000 A ge:24 Y S ex:Female Date:08/07/2024 Address:[address], [id number] Check In:09:03 AM ESTCheck O ut:09:17 AM EST Subjective: * Chief Complaints: * 1 . Presents to office alone for 1 month f/u on Adipex. Stopped medication during the third week d/t indigestion. * HPI: G eneral: lost 10 lbs but stopped due to bad heartburn not taking any meds for this recent breakup this last month needs refills on mental health meds. * ROS: G eneral/Constitutional: Fever d enies. H eadache d enies. W eight loss?denies. O phthalmologic: Discharge d enies. E ye [...] W heezing d enies. ? G astrointestinal: Acid Reflux/GERD/Heartburn a dmits. A bdominal pain d enies. C onstipation d enies. D ecreased appetite d enies. D iarrhea d enies. N ausea d enies. V omiting d enies. G enitourinary: Urinary incontinence d enies. P ainful urination d enies. M usculoskeletal: Back pain d enies. N suad pain d enies. M uscle aches d enies. S kin: Rash d enies. S kin lesion(s) d enies. ? * Active Problem List R87.612 Low grade squamous i ntraepithelial lesion on cytologic smear of cervix (LGSIL) Modified On:11/02/2022W/U Status:confirmed D24.9 Benign neoplasm of u nspecified breast Modified On:11/28/2022W/U Status:confirmed K58.9 Irritable bowel synd giorgio without diarrhea Modified On:12/06/2022U Status:confirmed J35.1 Hypertrophy of tonsi ls Modified On:12/06/2022U Status:confirmed J32.9 Sinusitis Modified On:06/25/2024U Status:confirmed E66.9 Class 1 obesity Modified On:07/03/2024U Status:confirmed F41.8 Anxiety and depressi on Modified On:08/07/2024U Status:confirmed K21.9 GERD (gastroesophage al reflux disease) Modified On:08/07/2024 Status:confirmed * Medical History: C yst of [...] day Orally Once a day , Discontinued Adipex-P(Phentermine HCl) 37.5 MG Tablet 1 tablet before breakfast Orally Once a day , Medication List reviewed and reconciled with the patient * Allergies: V agisil: facial swelling - Allergy. Objective: * Vitals: W t:187.8lbs, Ht: 66 in, BP:112/74mm Hg, BMI:30.31Index, Ht-cm: 167.64 cm, Wt-k.19 kg. * Examination: G eneral Examinations: GENERAL APPEARANCE: a lert and oriented, i n no acute distress. EYES: c onjunctiva normal, sclera non-icteric. NOSE: n ormal external appearance. LUNGS: c lear to auscultation bilaterally. CARDIO: r egular rate and rhythm, S1, S2 normal. MUSCULOSKELETAL: G ait and station normal. SKIN: w arm and dry. Assessment: * Assessment: 1. A nxiety and depression - F41.8 (Primary) 2 . G ERD (gastroesophageal reflux disease) - K21.9 3 . C lass 1 obesity - E66.9 Plan: * Treatment: 2. G ERD (gastroesophageal reflux disease) Start Omeprazole Capsule Delayed Release, 20 MG, 1 capsule 1/2 to 1 hour before morning meal, Orally, Once a day, 30 days, 30, Refills 2. 3. C lass 1 obesity Notes: work on diet if wants to continue adipex, try 1/2 pill fu as needed * Preventive Medicine: Screenings/Counseling: B UT ACTION PLAN Above Normal BMI Follow-up D ietary management education, guidance, and counseling See treatment section of progress note for complete details of management plan. T OBACCO ACTION PLAN Patient counselled on the dangers of tobacco use and urged to quit. 0 08/07/2024 . * Follow Up: p rn * * Electronically signed by Jeanne Swain , ANNEMARIE, WOOD REPATCHER.MACHINE COMPOSITOR.[id number] on 08/12/2024 at 03:45 PM EDT Sign off status: Completed Visit Status: C HK (Check Out) true * Provider: Nacho Swain ([facility]), MACHINE COMPOSITOR Date: 08/07/2024 Generated for [employer] couch/Marcos/Zion on: 08/12/2024 07:32 PM EDT History and Physical Notes * HPI (History of Present Illness) Category Sub-Category Detail Notes Category Not es General lost 10 lbs but stopped due to bad heartburn not taking any meds for this recent breakup this last month needs refills on mental health meds Examination Category Sub-Category Detail Notes Category Not [...]
--- OUTSIDE RECORDS SUMMARY | 2024-08-12 10:00 | XMS_ITS | Encounter Summary ---
Author Organization [facility] Address [address] [address] Care Team Providers Care Terrazzo Mechanic Name Role Phone Natalia Swain MD Unavailable [phone] Omid Campoverde MD Primary Care Provider [phone] Reason for Visit * Reason Comments Gynecologic Exam Encounter Details Date Type Department Care Team (Late st Contact Info) Description 08/12/2024 10:00 AM EDT Office Visit [facility] [address] [place] [address] Polly Pizano PA [address] [place], [facility] Well woman exam with routine gynecological exam; Screen for STD (sexually transmitted disease); Yeast infection of the skin Social History Tobacco Use Types Packs/Day Years Used Date Smoking Tobacco: Every Day Cigarettes Smokeless Tobacco: Never Alcohol Use Standard Drinks/Week Comments Not Currently 0 (1 standard drink = 0.6 oz pur e alcohol) Comments No Sex and Gender Information Value Date Recorded Sex Assigned at Female 09/13/2022 10:54 PM EDT Legal Sex Female 7:19 PM EDT Gender Identity Female 09/13/2022 10:54 PM EDT Sexual Orientation Not on file documented as of this encounter Last Filed Vital Signs Vital Sign Reading Time Taken Comments Blood Pressure 120/72 08/12/2024 10:15 AM EDT Pulse - - Temperature - - Respiratory Rate - - Oxygen Saturation - - Inhaled Oxygen Concentration - - Weight 85.7 kg (189 lb) 08/12/2024 10:15 AM EDT Height 167.6 cm (5' 6 ) 08/12/2024 10:15 AM EDT Body Mass Index 30.51 08/12/2024 10:15 AM EDT documented in this encounter Progress Notes * JAMES Childs - 08/12/2024 10:00 AM EDT Reason for Appointment: Patient ID: Jaswant Garcia is a 24 y.o. female who presents for Gynecologic Exam Patient presents today for Annual Exam. MEDICATIONS Current Outpatient Medications Medication Instructions ??? ARIPiprazole (ABILIFY) 2 mg, Oral, Daily ??? Claravis 40 mg, Oral, Daily ??? sertraline (ZOLOFT) 50 mg, Oral, Daily ALLERGIES Allergies Allergen Reactions ??? Vagisil [Benzo-Resorcinol (Perivaginal)] PROBLEMS Active Ambulatory Problems Diagnosis Date Noted ??? Allergic rhinitis 01/01/2007 ??? Hypertrophy of tonsils 01/17/2023 ??? Irritable bowel syndrome without diarrhea 01/17/2023 Resolved Ambulatory Problems Diagnosis Date Noted ??? No Resolved Ambulatory Problems Past Medical History: Diagnosis Date ??? Allergies ??? Endometriosis HISTORY PAST MEDICAL HISTORY SOCIAL HISTORY Past Medical History: Diagnosis Date ??? Allergies ??? Endometriosis Social History Tobacco Use ??? Smoking status: Every Day Current packs/day: 0.50 Types: Cigarettes ??? Smokeless tobacco: Never Substance Use Topics ??? Alcohol use: Not Currently ??? Drug use: Defer FAMILY HISTORY No family history on file. SURGICAL HISTORY Past Surgical History: Procedure Laterality Date ??? TONSILLECTOMY 02/08/2023 REVIEW OF SYSTEMS Review of Systems: Review of Systems Constitutional: Negative. HENT: Negative. Eyes: Negative. Respiratory: Negative. Cardiovascular: Negative. Gastrointestinal: Negative. Genitourinary: Negative. Musculoskeletal: Negative. Skin: Negative. Neurological: Negative. All other systems reviewed and are negative. Hematological: Negative. Endocrine: Negative. Allergic/Immunologic: Negative. OBJECTIVE Objective: Physical Exam Constitutional: Appearance: Normal appearance. She is well-developed. Genitourinary: Vulva normal. Right Adnexa: not tender and no mass present. Left Adnexa: not tender and no mass present. No cervical discharge. Breasts: Breasts are soft. Right: Normal. Left: Normal. HENT: Head: Normocephalic. Nose: Nose normal. Mouth/Throat: Mouth: Mucous membranes are moist. Cardiovascular: Rate and Rhythm: Normal rate and regular rhythm. Pulmonary: Effort: Pulmonary effort is normal. Breath sounds: Normal breath sounds. Abdominal: General: Bowel sounds are normal. There is no distension. Palpations: Abdomen is soft. Tenderness: There is no abdominal tenderness. There is no guarding or rebound. Musculoskeletal: General: No swelling. Normal range of motion. Cervical back: Normal range of motion. Right lower leg: No edema. Left lower leg: No edema. Neurological: General: No focal deficit present. Mental Status: She is alert and oriented to person, place, and time. Skin: General: Skin is warm and dry. Psychiatric: Mood and Affect: Mood normal. Behavior: Behavior normal. Vitals and nursing note reviewed. Exam conducted with a network intelligence analyst present. Vitals: Estimated body mass index is 30.51 kg/m?? as calculated from the following: Height as of this encounter: 5' 6 . Weight as of this encounter: 189 lb. BP: 120/72 Patient's last menstrual period was 08/11/2024 (approximate). ASSESSMENT & PLAN ICD-10-CM 1. Well woman exam with routine gynecological exam Z01.419 Pap Smear 2. Screen for STD (sexually transmitted disease) Z11.3 SURESWAB(R) ADVANCED VAGINITIS PLUS, TMA CHLAMYDIA TRACHOMATIS (GENITO/STI) Neisseria gonorrhea DNA probe, direct Annual Exam: Patient presents today for an annual exam. Patient states she is doing well and has complaints of apossible yeast infection and could like cx's. Pap/cx's were obtained without difficulty. Orders Placed This Encounter Procedures ??? CHLAMYDIA TRACHOMATIS (GENITO/STI) ??? Neisseria gonorrhea DNA probe, direct Follow Up: Patient is to return in one year for annual unless needed otherwise. Documented by Ria Borja MA on behalf of: JAMES Childs documented in this encounter Plan of Treatment Upcoming Encounters Date Type Department Care Team (Late st Contact Info) Description 02/20/2025 8:30 AM EST Procedure Visit [facility] [address] [place] [address] [place] [id number] Fabian Blanca, DO [address] [place] [address] [place] [address] Scheduled Orders Name Type Priority Associated Diagnoses Orde r Schedule Pap Smear Pathology and Cytology Routine Well woman exam with routine gynecological exam Ordered: 08/12/2024 SURESWAB(R) ADVANCED VAGINITIS PLUS, TMA Pathology and Cytology Routine Screen for STD (sexually transmitted disease) Ordered: 08/12/2024 CHLAMYDIA TRACHOMATIS (GENITO/STI) Lab Routine Screen for STD (sexually transmitted disease) Ordered: 08/12/2024 Neisseria gonorrhea DNA probe, direct Lab Routine Screen for STD (sexually transmitted disease) Ordered: 08/12/2024 documented as of this encounter Visit Diagnoses Diagnosis Well woman exam with routine gynecological exam Routine gynecological examination Screen for STD (sexually transmitted disease) Screening examination for venereal disease Yeast infection of the skin Candidiasis of skin and nails documented in this encounter Care Teams Terrazzo Mechanic Relationship Specialty Start Date End Date Omid Campoverde MD [address] [place] [address] PCP - General Family Medicine 01/17/23 Natalia Swain MD [address] [place] [address] Family Medicine 01/17/23 documented as of this encounter
--- OUTSIDE RECORDS SUMMARY | 2024-08-12 10:05 | XMS_ITS ---
Author Name Auto Generated Organization OH[facility] Care Team Providers Care Powder Carrier Name Role Phone Kimberlee Reza Attending Unavailable Kimberlee Reza Admitting Unavailable ABDIRIZAK AVILEZ Attending Unavailable ABDIRIZAK AVILEZ Referring Unavailable ABDIRIZAK AVILEZ Attending Unavailable PROBLEMS DATE TYPE CONDITION / CODE ATTENDING STATUS [facility] 04/29/2024 Unknown Acute pharyngiti s, unspecified / J02.9(ICD-10) Kimberlee Reza Active [facility] 04/29/2024 Unknown High risk hetero sexual behavior / Z72.51(ICD-10) Kimberlee Reza Active [facility] PROCEDURES No Procedure Records Found RESULTS THROAT CULTURE Observed: 04/29/2024 12:20 PM Status: F Source: [facility] Heavy Normal Respiratory Renan ra 2 Days PERFORMED BY: [place] [address] PATHOLOGIST COMMUNITY EDUCATION COORDINATOR ANNABELLE CHAN M.D. Performed By: #### VAGINITIS + #### [facility] , #### CUT #### [address] VAGINITIS PLUS (VG+) Collected: 04/29/2024 12:20 PM Status: F Source: [facility] TYPE CODE TESTS RESULT OUT OF RANGE REFERENCE UNITS LAB CHLAM Chlamydia Trachomotis, ALISHA Negative Negative LAB NEIS GERALD ALISHA Neisseria Gonorrhoeae, ALISHA Negative Negative Result Comment: Performed at : =[address] [place] [id number] Club Attendant: Cally Hendrix MD, Phone: [phone] LAB TRIC VAG ALISHA Tric Vag ALISHA Negative Negative LAB ATOPOBIUM Atopobium Vaginae Low - 0 . Result Comment: This test wa s developed and its performance characteristics determined by [facility]. It has not been cleared or approved by the Food and Drug Administration. LAB BVAB2 BVAB2 Low - 0 . Result Comment: This test wa s developed and its performance characteristics determined by [facility]. It has not been cleared or approved by the Food and Drug Administration. LAB MEGASPHAERA Megasphaera Low - 0 . Result Comment: This test wa s developed and its performance characteristics determined by [facility]. It has not been cleared or approved by the Food and Drug Administration. Calculate total score by adding the 3 individual bacterial vaginosis (BV) marker scores together. Total score is interpreted as follows: Total score 0-1: Indicates the absence of BV. Total score 2: Indeterminate for BV. Additional clinical data should be evaluated to establish a diagnosis. Total score 3-6: Indicates the presence of BV. LAB NENA ALBICAN Nena Albicans, ALISHA Negative Negative Result Comment: This test wa s developed and its performance characteristics determined by [facility]. It has not been cleared or approved by the Food and Drug Administration. LAB NENA GLABRAT Nena Glabrata, ALISHA Negative Negative Result Comment: This test wa s developed and its performance characteristics determined by [facility]. It has not been cleared or approved by the Food and Drug Administration. PERFORMED BY: [place] [address] PATHOLOGIST COMMUNITY EDUCATION COORDINATOR ANNABELLE CHAN M.D. Performed By: #### VAGINITIS + #### [facility] , #### CUT #### [address] US PELVIC COMPLETE W/ TV Observed: 03/26 8:03 AM Status: F Source: [facility] EPIC Order Comment: US PELVIS-TRA NSVAG IF INDICATED Patient's last menstrual period was 03/02/2024. EXAM: US PELVIC COMPLETE W/ TV HISTORY: Menorrhagia, pelvic pain. COMPARISON: None available. TECHNIQUE: Two-dimensional transabdominal grayscale ultrasound imaging of the pelvis was performed. Color flow Doppler imaging of the ovaries was also performed. Transvaginal was performed. FINDINGS: UTERUS 7.6 x 3.6 x 4.7 cm The uterus is anteverted in position and demonstrates a normal, homogeneous echotexture. ENDOMETRIUM 1.1 cm The endometrium demonstrates a normal, homogeneous echotexture. RIGHT OVARY 2.7 x 1.1 x 1.8 cm The right ovary demonstrates a normal echotexture. There is normal color Doppler flow. LEFT OVARY 3.3 x 1.9 x 3.0 cm The left ovary demonstrates a normal echotexture. There is normal color Doppler flow. Mild fluid is present within the cul-de-sac. IMPRESSION: 1. Mild fluid within the cul-de-sac. Otherwise, unremarkable ultrasound of the pelvis. 2. Normal color Doppler flow within the bilateral ovaries. Electronically Signed:Electronically signed by MEREDITH GARCIA II, MD, PHD at 27-Mar-2024 08:01:00 AM [facility] ALLERGIES DATE TYPE / CODE NAME / CODE REACTION SEVERITY SOURCE 04/29/2024 Drug Allergy/260730439 (SNOMED CT) latex/O919481812( RXNORM) swelling Unknown [facility] ENCOUNTERS ADMIT/DISCHARGE ACCOUNT NUMBER ADMITTING ENCOUNTER CLASS LOCATION SOURCE 08/12/2024/08/13/19 [id number] Ambulatory Building:[facility] 04/29/2024/04/30/19 [id number] [facility] 03/26/2024/03/26/19 [id number] Ambulatory Building:[facility] 03/07/2024/03/07/19 [id number] Ambulatory Building:[facility] PAYERS ENCOUNTER GUARANTOR PAYER SUBSCRIBER SOURCE 08/12/2024 NADIA CROSS: [id number] [place] [address]Mfr: (HP) Primary Insurance:[facility] [employer] MEDICAIDPolicy Number: [id number] Date:2024-04-06 NADIA PORTERDOB: [id number] [place] [address] [facility] 04/29/2024 Nad[place] [id number]: (HP) Primary Insurance:Dino PARIKH/BSPolicy Number: [id number] Date:2024-04-29 Doris P PorterDOB: [id number] [place] [phone]: (HP) [facility] 04/29/2024 Secondary Insurance[place] McaidPolicy Number: [id number] Date:[id number] [address] [place] [address]UB: Nadia PorterDOB: [id number] [place] [phone]: (HP) [facility] 04/29/2024 Tertiary Insurance:Self PayPolicy Number: Effective Date:2024-04-29 [facility] 03/26/2024 NADIA PORTERDOB: [place] [address]Azs: (HP) Primary Insurance:BCBSPolicy Number: [id number] Date:2024-02-07 DORIS PORTERDOB: [id number] [place] [address] [facility] 03/07/2024 NADIA PORTERDOB: [place] [address]Ddh: (HP) Primary Insurance:BCBSPolicy Number: [id number] Date:2024-02-07 DORIS P PORTERDOB: [id number] [place] [id number] [facility] EPIC
--- OUTSIDE RECORDS SUMMARY | 2024-08-12 19:31 | XMS_ITS | Encounter Summary ---
Author Organization [facility] Address [address] [facility] [place] [address] Care Team Providers Care Acoustical Tile Carpenters Supervisor Name Role Phone Natalia Swain MD Unavailable [phone] Omid Campoverde MD Primary Care Provider [phone] Encounter Details Date Type Department Care Team (Late st Contact Info) Description 11/22/2022 Clinisync Result Encounter [facility] External Department Unsolicited Fabian Blanca, DO [address] [place] [address] Social History Tobacco Use Types Packs/Day Years Used Date Smoking Tobacco: Never Comments Unknown Sex and Gender Information Value Date Recorded Sex Assigned at Female 09/13/2022 10:54 PM EDT Legal Sex Female 7:19 PM EDT Gender Identity Female 09/13/2022 10:54 PM EDT Sexual Orientation Not on file documented as of this encounter Plan of Treatment Upcoming Encounters Date Type Department Care Team (Late st Contact Info) Description 02/20/2025 8:30 AM EST Procedure Visit [facility] [address] [place] [id number] Fabian Blanca DO [address] [place] [address] documented as of this encounter Procedures Procedure Name Priority Date/Time Associated Diagnosis Comments BI MAMMOGRAM DIAGNOSTIC RIGHT 11/22/2022 7:40 AM EDT documented in this encounter Results * Right diagnostic mammogram (11/22/2022 7:40 AM EDT) Anatomical Region Laterality Modality Breast Right Mammography 11/22/2022 7:40 AM EDT Narrative 11/22/2022 7:40 [place] [address] Mammography Report Signed Patient: COOKIE GARCIA MR#: [id number] : 2000 Acct:[id number] Age/Sex: 22 / F ADM Date: 11/21/22 Loc: US Attending Dr: Fabian Blanca D.O. Ordering Physician: Fabian Blanca D.O. Results: Date of Service: 11/21/22 Follow Up: Procedure(s): MM diagnostic mammo unilat RT Accession Number(s): [id number] cc: NATALIA SWAIN ; Fabian Blanca D.O. Patient: COOKIE GARCIA. Exam Date: 11/21/2022 : 2000 Gender:F Ordering : DR Fabian Blanca . Admission #: [id number] Family : NATALIA GriffithCelina [employer] Order #: [id number] CLICK HERE TO VIEW EXAM RADIOLOGY REPORT PROCEDURE: MAMMOGRAM POST BIOPSY IMAGES COMPARISON: MM TOMOSYNTHESIS DIAGNOSTIC BI, 10/31/2022. INDICATIONS: Right Breast Mass BREAST COMPOSITION: FINDINGS: BIOPSY MARKER: A metallic marker has been placed in the targeted location within the upper outer quadrant of the right breast corresponding to a targeted mass. Dictated by: Tima Swartz MD on 11/22/2022 at 07:39 Approved by: Tima Swartz MD on 11/22/2022 at 07:40 Dictated By: Tima Swartz M.D. Signed By: 11/22/2240 DD/ 9 TD/TT: Mineral Industry Teacher: Procedure Note Radiology, Radiologist, - 12/05/[address] [address] Mammography Report Signed Patient: COOKIE GARCIA JMR#: [id number] : 2000Acct:[id number] Age/Sex: 22 / FADM Date: 11/21/22 Loc: US Attending Dr: Fabian Blanca D.O. Ordering Physician: Fabian Blanca D.O.Results: Date of Service: 11/21/22Follow Up: Procedure(s): MM diagnostic mammo unilat RT Accession Number(s): [id number] cc: ANTALIA SWAIN ; Fabian Blanca D.O. Patient: COOKIE GARCIA Exam Date: 11/21/2022 : 2000 Gender:F Ordering : DR Fabian Blanca . Admission #: [id number] Family : NATALIA SWAIN [facility] Order #: [id number] CLICK HERE TO VIEW EXAM RADIOLOGY REPORT PROCEDURE: MAMMOGRAM POST BIOPSY IMAGES COMPARISON: MM TOMOSYNTHESIS DIAGNOSTIC BI, 10/31/2022. INDICATIONS: Right Breast Mass BREAST COMPOSITION: FINDINGS: BIOPSY MARKER: A metallic marker has been placed in the targetedlocation within the upper outer quadrant of the right breast corresponding to a targeted mass. Dictated by: Tima Swartz MD on 11/22/2022 at 07:39 Approved by: Tima Swartz MD on 11/22/2022 at 07:40 Dictated By: Tima Swartz M.D. Signed By:11/22/22739 DD/ 9 TD/TT: Mineral Industry Teacher: Fabian Blanca DO IMG BI PROCEDURES Final Result documented in this encounter Visit Diagnoses Not on filedocumented in this encounter Care Teams Acoustical Tile Carpenters Supervisor Relationship Specialty Start Date End Date Omid Campoverde MD [address] [place] [id number] PCP - General Family Medicine 01/17/23 Natalia Swain MD [address] [place] [address] Family Medicine 01/17/23 documented as of this encounter
--- OUTSIDE RECORDS SUMMARY | 2024-08-12 19:31 | XMS_ITS | Encounter Summary ---
Author Organization [facility] Address [address] [place] [address] Care Team Providers Care Stage Electrician Helper Name Role Phone Natalia Swain MD Unavailable [phone] Omid Campoverde MD Primary Care Provider [phone] Encounter Details Date Type Department Care Team (Late st Contact Info) Description 11/21/2022 Clinisync Result Encounter [facility] External Department Unsolicited Fabian Blanca, DO [address] [place] [address] Social History Tobacco Use Types Packs/Day Years [...] Visit [facility] OB [address] [place] [id number] Fabian Blanca DO [address] [place] [address] documented as of this encounter Procedures Procedure Name Priority Date/Time Associated Diagnosis Comments US VAC ASST BX BREAST RT W CLIP 11/21/2022 1:19 PM EDT documented in this encounter Results * US VAC ASST BX BREAST RT W CLIP (11/21/2022 1:19 PM EDT) Anatomical Region Laterality Modality Radiographic Kat ging 11/21/2022 1:19 PM EDT Narrative 11/21/2022 1:19 PM EDT [address] [address] Ultrasound Report Signed Patient: COOKIE GARCIA MR#: [id number] : 2000 Acct:[id number] Age/Sex: 22 / F ADM Date: 11/21/22 Loc: US Attending Dr: Fabian Blanca D.O. Ordering Physician: Fabian Blanca D.O. Date of Service: 11/21/22 Procedure(s): US breast vac bx w/ clip RT Accession Number(s): [id number] cc: NATALIA SWAIN ; Fabian Blanca D.O. Patient: COOKIE GARCIA Exam Date: 11/21/2022 : 2000 Gender:F Ordering : DR Fabian Blanca . Admission #: [id number] Family : NATALIA SWAIN TINSMITH HELPER Order #: [id number] CLICK HERE TO VIEW EXAM RADIOLOGY REPORT PROCEDURE: US BREAST VAC BX W/ CLIP RT COMPARISON: None. INDICATIONS: Right Breast Mass DESCRIPTION: After obtaining informed consent, a vacuum assisted ultrasound-guided biopsy was performed in the usual sterile manner. The location of the biopsy was then marked as indicated below. FINDINGS: RECOMMENDATIONS: SPECIMEN #, LOCATION: 5 samples, 9 o'clock right breast BIOPSY NEEDLE: 13 gauge Elite (r) vacuum core biopsy needle. MARKERS(S) PLACED: A single metallic marker was placed in the appropriate targeted location. MEDICATION: 3 cubic cm 1% buffered lidocaine without epinephrine superficial, 8 cubic cm Buffered 1% lidocaine with epinephrine deep. COMPLICATIONS: None. PATHOLOGY LAB: Pending. CONCLUSION: 1. Uneventful ultrasound-guided breast biopsy. 2. Pathology results are pending. An addendum to this report will be provided after pathology results are available. Dictated by: Tima Swartz MD on 11/21/2022 at 13:18 Approved by: Tima Swartz MD on 11/21/2022 at 13:18 Dictated By: Tima Swartz M.D. Signed By: 11/21/22 1335 DD/ 1319 TD/TT: Sculpture Instructor: Procedure Note Radiology, Radiologist, - 12/02/[address] [address] Ultrasound Report Signed Patient: COOKIE GARCIA JMR#: [id number] : 2000Acct:[id number] Age/Sex: 22 / FADM Date: 11/21/22 Loc: US Attending Dr: Fabian Blanca D.O. Ordering Physician: Fabian Blanca D.O. Date of Service: 11/21/22 Procedure(s): US breast vac bx w/ clip RT Accession Number(s): [id number] cc: NATALIA SWAIN ; Fabian Blanca D.O. Patient: COOKIE GARCIA Exam Date: 11/21/2022 : 2000 Gender:F Ordering : DR Fabian Blanca . Admission #: [id number] Family : NATALIA GriffithCelina GURWINDRE TINSMITH HELPER Order #: [id number] CLICK HERE TO VIEW EXAM RADIOLOGY REPORT PROCEDURE: US BREAST VAC BX W/ CLIP RT COMPARISON: None. INDICATIONS: Right Breast Mass DESCRIPTION: After obtaining informed consent, a vacuum assisted ultrasound-guided biopsy was performed in the usual sterile manner. The location of the biopsy was then marked as indicated below. FINDINGS: RECOMMENDATIONS: SPECIMEN #, LOCATION: 5 samples, 9 o'clock right breast BIOPSY NEEDLE: 13 gauge Elite (r) vacuum core biopsy needle. MARKERS(S) PLACED: A single metallic marker was placed in theappropriate targeted location. MEDICATION: 3 cubic cm 1% buffered lidocaine without epinephrine superficial, 8 cubic cm Buffered 1% lidocaine with epinephrine deep. COMPLICATIONS: None. PATHOLOGY LAB: Pending. CONCLUSION: 1. Uneventful ultrasound-guided breast biopsy. 2. Pathology results are pending. An addendum to this report will be provided after pathology results are available. Dictated by: Tima Swartz MD on 11/21/2022 at 13:18 Approved by: Tima Swartz MD on 11/21/2022 at 13:18 Dictated By: Tima Swartz M.D. Signed By:11/21/22 0526 DD/ 1319 TD/TT: Sculpture Instructor: Fabian Blanca DO IMG XR PROCEDURES Final Result documented in this encounter Visit Diagnoses Not on filedocumented in this encounter Care Teams Stage Electrician Helper Relationship Specialty Start Date End Date Omid Campoverde MD [address] [place] [phone] PCP - General Family Medicine 01/17/23 Natalia Swain MD [address] [place] [address] [phone] Family Medicine 01/17/23 documented as of this encounter
--- OUTSIDE RECORDS SUMMARY | 2024-08-12 19:31 | XMS_ITS | Encounter Summary ---
Author Organization [facility] Address [address] [place] [address] Care Team Providers Care Senior Chemical Process Engineer Name Role Phone Natalia Swain MD Unavailable [phone] Omid Campoverde MD Primary Care Provider [phone] Encounter Details Date Type Department Care Team (Late st Contact Info) Description 11/25/2022 Clinisync Result Encounter [facility] External Department Unsolicited Pranay Blanca, DO [address] [place] [address] Social History Tobacco Use Types Packs/Day Years [...] Visit [facility] B[facility] [place] [address] [place] [phone] Pranay Blanca DO [address] [place] [address] documented as of this encounter Procedures Procedure Name Priority Date/Time Associated Diagnosis Comments US VAC ASST BX BREAST RT W CLIP 11/25/2022 11:36 AM EDT documented in this encounter Results * US VAC ASST BX BREAST RT W CLIP (11/25/2022 11:36 AM EDT) Anatomical Region Laterality Modality Radiographic Kat ging 11/25/2022 11:3 6 AM EDT Narrative 08/04/2023 11:00 AM EDT [place] [phone] Ultrasound Report Signed with Addenda Patient: COOKIE GARCIA MR#: [id number] : 2000 Acct:[id number] Age/Sex: 22 / F ADM Date: 11/21/22 Loc: US Attending Dr: Pranay Blanca D.O. Ordering Physician: Pranay Blanca D.O. Date of Service: 11/21/22 Procedure(s): US breast vac bx w/ clip RT Accession Number(s): [id number] cc: NATALIA SWAIN ; Pranay Blanca D.O. ADDENDUM The [address] [address] Patient Name: COOKIE GARCIA MRN: [id number] date: 2000 Sex: F Assigned Patient Location: US Current Patient Location: US Accession/Order Number: [id number] Exam Date: 11/21/2022 11:50 Report Date: 11/25/2022 13:00 At the request of: PRANAY BLANCA Procedure: US breast vac bx w/ clip RT Begin Addendum #1 COLLECTED DATE/TIME: 11/21/2022 12:18 EDT Final Diagnosis Report for [facility] [place] RIGHT BREAST MASS, 9 O'CLOCK, ULTRASOUND GUIDED CORE BIOPSY: -BENIGN FIBROEPITHELIAL LESION, CONSISTENT WITH FIBROADENOMA. -NEGATIVE FOR MALIGNANCY. 11/25/[address] Blanca. Verified with Ria that report was present in office. Original Report EXAMINATION: US breast vac bx w/ clip RT HISTORY: Right Breast Mass COMPARISON: No relevant comparison available. TECHNIQUE: After obtaining informed consent, an ultrasound-guided biopsy was performed in the usual sterile manner. FINDINGS: IMAGING: Ultrasound BIOPSY NEEDLE: 13-gauge mammotome SPECIMEN TYPE, #, LOCATION: 5 samples, 9:00 right breast mass MEDICATION: 3 cc 1% buffered lidocaine without epinephrine superficial, 8 cc 1% buffered lidocaine with epinephrine deep COMPLICATIONS: None. LABORATORY: OTHER: Negative. Addendum Dictated By: Saulo Page M.D. Addendum Signed By: <Electronically signed by Saulo Page M.D.> 08/04/23 1100 Addendum Cosigned By: DD/ TD/TT: / ADDENDUM US/US breast vac bx w/ clip RT IMPRESSION: Uneventful ultrasound guided biopsy. The patient was instructed to obtain follow up care and biopsy results from the referring physician. Electronically authenticated by: SAULO PAGE Date: 11/25/2022 13:00 Addendum Dictated By: Saulo Page M.D. Addendum Signed By: <Electronically signed by Saulo Page M.D.> 08/04/23 1100 Addendum Cosigned By: DD/ TD/TT: / Patient: COOKIE GARCIA Exam Date: 11/21/2022 : 2000 Gender:F Ordering : DR Pranay Blanca . Admission #: [id number] Family : NATALIA SWAIN [facility] Order #: [id number] CLICK HERE TO VIEW EXAM This report includes an Addendum and supersedes previous reports for this exam. RADIOLOGY REPORT PROCEDURE: US BREAST VAC BX [...] after pathology results are available. Dictated by: Saulo Page MD on 11/21/2022 at 13:18 Approved by: Saulo Page MD on 11/21/2022 at 13:18 ADDENDUM: The pathology report is now available and shows benign findings concordant with the imaging findings. Final diagnosis: Benign fibroepithelial lesion, consistent with fibroadenoma. Findings faxed to Dr. Blanca. Receipt verified with Ria by telephone Dictated by: Saulo Page MD on 11/25/2022 at 11:36 Approved by: Saulo Page MD on 11/25/2022 at 11:36 US/US breast vac bx w/ clip RT IMPRESSION: Uneventful ultrasound guided biopsy. The patient was instructed to obtain follow up care and biopsy results from the referring physician. Electronically authenticated by: SAULO PAGE Date: 11/21/2022 13:30 Dictated By: Saulo Page M.D. Signed By: 11/25/22 1137 DD/ 1136 TD/TT: National Sales Executive: Procedure Note Radiology, Radiologist, MD - 08/04/2023 [place] [address] Ultrasound Report Signed with Addenda Patient: COOKIE GARCIA R#: [id number] : 2000Acct:[id number] Age/Sex: 22 / FADM Date: 11/21/22 Loc: US Attending Dr: Pranay Blanca D.O. Ordering Physician: Pranay Blanca D.O. Date of Service: 11/21/22 Procedure(s): US breast vac bx w/ clip RT Accession Number(s): [id number] cc: NATALIA SWAIN ; Pranay Blanca D.O. ADDENDUM The [address] [address] Patient Name: COOKIE GARCIA MRN: [id number] date: 2000 Sex: F Assigned Patient Location: US Current Patient Location: US Accession/Order Number: [id number] Exam Date: 11/21/2022 11:50 Report Date: 11/25/2022 13:00 At the request of: PRANAY BLANCA Procedure: US breast vac bx w/ clip RT Begin Addendum #1 COLLECTED DATE/TIME: 11/21/2022 12:18 EDT Final Diagnosis Report for [facility], [place], [place] RIGHT BREAST MASS, 9 O'CLOCK, ULTRASOUND GUIDED CORE BIOPSY: -BENIGN FIBROEPITHELIAL LESION, CONSISTENT WITH FIBROADENOMA. -NEGATIVE FOR MALIGNANCY. 11/25/[address] Blanca. Verified with Ria that report waspresent in office. Original Report EXAMINATION: US breast vac bx w/ clip RT HISTORY: Right Breast Mass COMPARISON: No relevant comparison available. TECHNIQUE: After obtaining informed consent, an ultrasound-guided biopsywas performed in the usual sterile manner. FINDINGS: IMAGING: Ultrasound BIOPSY NEEDLE: 13-gauge mammotome SPECIMEN TYPE, #, LOCATION: 5 samples, 9:00 right breast mass MEDICATION: 3 cc 1% buffered lidocaine without epinephrine superficial, 8cc 1% buffered lidocaine with epinephrine deep COMPLICATIONS: None. LABORATORY: OTHER: Negative. Addendum Dictated By: Saulo Page M.D. Addendum Signed By: <Electronically signed by Saulo Page M.D.> 08/04/23 1100 Addendum Cosigned By: DD/ TD/TT: / ADDENDUM US/US breast vac bx w/ clip RT IMPRESSION: Uneventful ultrasound guided biopsy. The patient was instructed to obtain follow up care and biopsy results from the referring physician. Electronically authenticated by: SAULO PAGE Date: 11/25/2022 13:00 Addendum Dictated By: Saulo Page M.D. Addendum Signed By: <Electronically signed by Saulo Page M.D.> 08/04/23 1100 Addendum Cosigned By: MIKY/ TD/TT: / Patient: COOKIE GARCIA Exam Date: 11/21/2022 : 2000 Gender:F Ordering : DR Pranay Blanca . Admission #: [id number] Family : NATALIA SWAIN [facility] Order #: [id number] CLICK HERE TO VIEW EXAM This report includes an Addendum and supersedes previous reports for this exam. RADIOLOGY REPORT PROCEDURE: US BREAST VAC BX [...] after pathology results are available. Dictated by: Saulo Page MD on 11/21/2022 at 13:18 Approved by: Saulo Page MD on 11/21/2022 at 13:18 ADDENDUM: The pathology report is now available and shows benign findings concordant with the imaging findings. Final diagnosis: Benign fibroepithelial lesion, consistent withfibroadenoma. Findings faxed to Dr. Blanca. Receipt verified with Ria by telephone Dictated by: Saulo Page MD on 11/25/2022 at 11:36 Approved by: Saulo Page MD on 11/25/2022 at 11:36 US/US breast vac bx w/ clip RT IMPRESSION: Uneventful ultrasound guided biopsy. The patient was instructed to obtain follow up care and biopsy results from the referring physician. Electronically authenticated by: SAULO PAGE Date: 11/21/2022 13:30 Dictated By: Saulo Page M.D. Signed By:11/25/22 1137 DD/ 1136 TD/TT: National Sales Executive: us Pranay Blanca DO IMG XR PROCEDURES Final Result documented in this encounter Visit Diagnoses Not on filedocumented in this encounter Care Teams Senior Chemical Process Engineer Relationship Specialty Start Date End Date Omid Campoverde MD [address] [place] [address] [place] [address] PCP - General Family Medicine 01/17/23 Natalia Swain MD [address] [place] [address] Family Medicine 01/17/23 documented as of this encounter
--- OUTSIDE RECORDS SUMMARY | 2024-08-12 19:32 | XMS_ITS | Encounter Summary ---
Author Organization [facility] Address [address] [facility] [place] [address] Care Team Providers Care Lpn Or Medical Assistant Name Role Phone Natalia Swain MD Unavailable [phone] Omid Campoverde MD Primary Care Provider [phone] Encounter Details Date Type Department Care Team (Late st Contact Info) Description 10/31/2022 Clinisync Result Encounter [facility] External Department Unsolicited Polly Pizano PA [address] [facility] [address] [place], [place] [address] Social History Tobacco Use Types Packs/Day Years [...] EST Procedure Visit [facility] BCP OB [address] [facility] [place] [phone] Fabian Blanca DO [address] [facility] [address] [place], [place] [address] documented as of this encounter Procedures Procedure Name Priority Date/Time Associated Diagnosis Comments MM TOMOSYNTHESIS DIAGNOSTIC BI 10/31/2022 9:35 AM EDT documented in this encounter Results * MM TOMOSYNTHESIS DIAGNOSTIC BI (10/31/2022 9:35 AM EDT) Anatomical Region Laterality Modality Other 10/31/2022 9:35 AM EDT Narrative 10/31/2022 9:35 AM EDT The [address] [address] Mammography Report Signed Patient: COOKIE GARCIA MR#: [id number] : 2000 Acct:[id number] Age/Sex: 22 / F ADM Date: 10/31/22 Loc: MAMMO Attending Dr: Polly Pizano Ordering Physician: Polly Pizano Results: Date of Service: 10/31/22 Follow Up: Procedure(s): MM tomosynthesis diagnostic BI Accession Number(s): [id number] cc: NATALIA Goodman Patient: COOKIE GARCIA. Exam Date: 10/31/2022 : 2000 Gender:F Ordering : JAMES Pizano . Admission #: [id number] Family : NATALIA SWAIN [facility] Order #: [id number] CLICK HERE TO VIEW EXAM RADIOLOGY REPORT PROCEDURE: MM TOMOSYNTHESIS DIAGNOSTIC BI, 10/31/2022, 08:42 US BREAST BI LIMITED, 10/31/2022, 08:12 COMPARISON: None. INDICATIONS: Biolateral Breast Cyst Calculator Name NCI Breast Cancer Risk Assessment Tool 5 Year Breast Cancer Risk Not Applicable. Lifetime Breast Cancer Risk Not Applicable. Personal Breast Cancer No Personal Ovarian Cancer No Treatments None Family Cancers Grandfather-paternal with colon cancer at age 80; Uncle-maternal with brain cancer at age 50. LOCATION: [facility] BREAST COMPOSITION: Extremely dense, which lowers the sensitivity of mammography. FINDINGS: DIAGNOSTIC CATEGORY 4--SUSPICIOUS FOR MALIGNANCY. FINDING DOES NOT EXHIBIT CLASSIC FINDINGS OF BREAST CANCER: RIGHT BREAST: Deep to a skin surface marker overlying the posterior upper-outer quadrant is a 2.0 x 1.6 x 1.4 cm partially circumscribed mass. Ultrasound evaluation demonstrates a lobular, smoothly circumscribed heterogeneous mass with small amount of internal blood flow, 2.2 x 2.2 x 1.3 cm. Appearance favors a fibroadenoma. Ultrasound-guided tissue sampling should be considered for confirmation. LEFT BREAST: No significant suspicious finding on mammography and during ultrasound imaging to account for patient's palpable sensation within the posterior upper-outer quadrant.. RECOMMENDATIONS: ULTRASOUND-GUIDED CORE BIOPSY: RIGHT BREAST PLEASE NOTE: A NORMAL MAMMOGRAM DOES NOT EXCLUDE THE POSSIBILITY OF BREAST CANCER. A CLINICALLY SUSPICIOUS PALPABLE LUMP SHOULD BE BIOPSIED. Dictated by: Robert Azevedo M.D. on 10/31/2022 at 09:24 Approved by: Robert Azevedo M.D. on 10/31/2022 at 09:34 Dictated By: Robert Azevedo M.D. Signed By: 10/31/22934 DD/ 4 TD/TT: Clinical Training Coordinator: Procedure Note Radiology, Radiologist, MD - 10/31/2022 [place] [address] Mammography Report Signed Patient: COOKIE GARCIA R#: [id number] : 2000Acct:[id number] Age/Sex: 22 / FADM Date: 10/31/22 Loc: MAMMO Attending Dr: Polly Pizano Ordering Physician: Polly PizanoResults: Date of Service: 10/31/22Follow Up: Procedure(s): MM tomosynthesis diagnostic BI Accession Number(s): [id number] cc: NATALIA Goodman Patient: COOKIE GARCIA Exam Date: 10/31/2022 : 2000 Gender:F Ordering : JAMES Pizano . Admission #: [id number] Family : NATALIA SWAIN [facility] Order #: [id number] CLICK HERE TO VIEW EXAM RADIOLOGY REPORT PROCEDURE: MM TOMOSYNTHESIS DIAGNOSTIC BI, 10/31/2022, 08:42 US BREAST BI LIMITED, 10/31/2022, 08:12 COMPARISON: None. INDICATIONS: Biolateral Breast Cyst Calculator Name NCI Breast Cancer Risk Assessment Tool 5 Year Breast Cancer Risk Not Applicable. Lifetime Breast Cancer Risk Not Applicable. Personal Breast Cancer No Personal Ovarian Cancer No Treatments None Family Cancers Grandfather-paternal with colon cancer at age 80; Uncle-maternal with brain cancer at age 50. LOCATION: [facility] BREAST COMPOSITION: Extremely dense, which lowers the sensitivity of mammography. FINDINGS: DIAGNOSTIC CATEGORY 4--SUSPICIOUS FOR MALIGNANCY. FINDING DOES NOT EXHIBIT CLASSIC FINDINGS OF BREAST CANCER: RIGHT BREAST: Deep to a skin surface marker overlying the posterior upper-outer quadrant is a 2.0 x 1.6 x 1.4 cm partially circumscribed mass. Ultrasound evaluation demonstrates a lobular, smoothly circumscribed heterogeneous mass with small amount of internal blood flow, 2.2 x 2.2 x1.3 cm. Appearance favors a fibroadenoma. Ultrasound-guided tissue sampling should be considered for confirmation. LEFT BREAST: No significant suspicious finding on mammography and during ultrasound imaging to account for patient's palpable sensation within the posterior upper-outer quadrant.. RECOMMENDATIONS: ULTRASOUND-GUIDED CORE BIOPSY: RIGHT BREAST PLEASE NOTE: A NORMAL MAMMOGRAM DOES NOT EXCLUDE THE POSSIBILITY OFBREAST CANCER. A CLINICALLY SUSPICIOUS PALPABLE LUMP SHOULD BE BIOPSIED. Dictated by: Robert Azevedo M.D. on 10/31/2022 at 09:24 Approved by: Robert Azevedo M.D. on 10/31/2022 at 09:34 Dictated By: Robert Azevedo M.D. Signed By:10/31/2235 DD/ 4 TD/TT: Clinical Training Coordinator: Polly RAMIREZ [facility] IMAGING Final Result documented in this encounter Visit Diagnoses Not on filedocumented in this encounter Care Teams Lpn Or Medical Assistant Relationship Specialty Start Date End Date Omid Campoverde MD [address] [place] [address] PCP - General Family Medicine 01/17/23 Natalia Swain MD [address] [place] [address] Family Medicine 01/17/23 documented as of this encounter
--- OUTSIDE RECORDS SUMMARY | 2024-08-12 19:32 | XMS_ITS | Encounter Summary ---
Author Organization [facility] Address [address] [email or web address] [place] [address] Care Team Providers Care Technology Assistant Name Role Phone Natalia Swain MD Unavailable [phone] Omid Campoverde MD Primary Care Provider [phone] Encounter Details Date Type Department Care Team (Late Contact Info) Description 10/11/2022 Abstract [facility] OB [address] [place] [address] Polly Pizano PA [address] [place], [facility] Social History Tobacco Use Types Packs/Day Years Used Date Smoking Tobacco: Never Tobacco Cessation:Counseling Given: Not Answered Comments Unknown Sex and Gender Information Value Date Recorded Sex Assigned at Female 09/13/2022 10:54 PM EDT Legal Sex Female 7:19 PM EDT Gender Identity Female 09/13/2022 10:54 PM EDT Sexual Orientation Not on file documented as of this encounter Plan of Treatment Upcoming Encounters Date Type Department Care Team (Late st Contact Info) Description 02/20/2025 8:30 AM EST Procedure Visit [facility] OB [address] [place] [address] Fabian Blanca DO [address] [place], [place] [address] [phone] documented as of this encounter Visit Diagnoses Not on filedocumented in this encounter Care Teams Technology Assistant Relationship Specialty Start Date End Date Omid Campoverde MD [address] [place] [address] PCP - General Family Medicine 01/17/23 Natalia Swain MD [address] [place] [address] Family Medicine 01/17/23 documented as of this encounter
--- OUTSIDE RECORDS SUMMARY | 2024-08-12 19:32 | XMS_ITS | Patient Health Record ---
Author Organization [facility] [place] Address [address] [place] [address] Care Team Providers Care Second Floor Operator Name Role Phone Natalia Swain Primary Care Provider Allergies Allergen (clinical drug ingredient) Drug/Non Drug Allergy documented on EMR Reaction Allergy Type Onset Date Status Vagisil facial swelling Drug Allergy A ctive Reason For Referral No Information Medications Medication SIG (Take, Route, Fr equency, [...] Question Answer Notes Patient is a nonsmoker Alcohol Screen (Audit-C) Question Answer Notes Did you have a drink contain ing alcohol in the past year? Yes How often did you have 6 or more drinks on one occasion in the past year? Monthly or less (1 point) How many drinks did you have on a typical day when you were drinking in the past year? 3 or 4 drinks (1 point) How often did you have a dri nk containing alcohol in the past year? 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) Active confirmed Problem 895000396 Hypertrophy of tonsils (J35.1) Active confirmed Problem 50051635 Irritable bowel syndrome without diarrhea (K58.9) Active confirmed Problem 301616619 Low grade squamo us intraepithelial lesion on cytologic smear of cervix (LGSIL) (R87.612) Active confirmed Problem Gastroesophageal reflux disease (977297892) GERD (gastroesophageal reflux disease) (K21.9) Active confirmed Problem Sinusitis (22152741) Sinusitis (J32.9) Active confirmed Problem Mixed anxiety and depressive disorder (268230683) Anxiety and depression (F41.8) Active confirmed Problem Obese class I (finding) (763696668889420) Class 1 obesity (E66.9) Active confirmed Vital Signs Heart Rate 93 /min 06/25/2024 Oximetry 97 % 06/25/2024 Blood pressure diastolic 74 mm Hg 08/07/2024 Height 66 in 08/07/2024 Blood pressure systolic 112 mm Hg 08/07/2024 Weight 187.8 lbs 08/07/2024 BMI 30.31 kg/m2 08/07/2024 Encounters Encounter Location Date Provider Diagnosis [place] [address] [place] [address] 06/25/2024 Natalia Swain Sinusitis J32.[address] [address] 07/03/2024 Natalia Swain Class 1 obesity E66. [address] [place] [address] [place] [address] 08/07/2024 Natalia Swain Anxiety and depression F41.8 ; GERD (gastroesophageal reflux disease) K21.9 and Class 1 obesity E66.9 [facility] [address] [place] [address] 08/05/2024 Natalia Swain Assessments Encounter Date Diagnosis (ICD Code) Assessment Notes Treatment Notes Treatment Clinical Notes Section Notes 06/25/2024 Sinusitis (ICD-10 - J32.9) otc meds if not improving notify office 07/03/2024 Class 1 obesity (ICD-10 - E66.9) stop med if SE work on diet, activity fu 1 month CSA signed OARRS reviewed 08/07/2024 Anxiety and depression (ICD-10 - F41.8) 08/07/2024 GERD (gastroesophage al reflux disease) (ICD-10 - K21.9) 08/07/2024 Class 1 obesity (ICD-10 - E66.9) work on diet if wants to continue adipex, try 1/2 pill fu as needed Plan Of Treatment Pending Test Test Name Order Date STREPT SCREEN 12/06/2022 Insurance Providers Payer Name Payer Address Payer Phone Subscriber Number Group Number Insured Name Patient Relationship to Insured Coverage Start Date Coverage End Date [employer] ACCESS PPO PLUS LOCAL PLAN [address] [place] [phone] [id number] Nadia Garcia Self - patient is the insured [employer] [place] [employer] [address] [place] [address] [phone] [id number] Nadia Garcia Self - patient is the insured Medical (General) History Medical History History ICD Code Cyst of breast, right N60.01 Cyst of left breast N60.02 Allergic rhinitis J30.9 Endometriosis N80.9 Insomnia G47.00 COVID-19 U07.1 Anxiety F41.9 GERD (gastroesophageal reflux disease) K 21.9 RUQ pain R10.11 Sebaceous cyst L72.3 Depression F32.9 Miscarriage O03.9 Surgical History Surgery Date(Month/Year) Tonsillectomy Biopsy- Right Breast 11/2022
--- OUTSIDE RECORDS SUMMARY | 2024-08-12 19:32 | XMS_ITS | Clinical Summary ---
Author Organization [facility] Address [address] [place] [address] Care Team Providers Care Shoe Singer Name Role Phone Natalia Swain MD Unavailable [phone] Omid Campoverde MD Primary Care Provider [phone] Allergies Active Allergy Reactions Criticality Noted Date Comments Benzo-Resorcinol (Perivaginal) 10/12 Medications Claravis 40 MG capsule Take 40 mg by mouth in the morning. 3 Active ARIPiprazole (Abilify) 2 MG tabletIndicatio ns:Mood changes Take 1 tablet (2 mg) by mouth Daily 30 tablet 3 5 Active sertraline (Zoloft) 50 MG tabletIndicatio ns:Mood changes Take 1 tablet (50 mg) by mouth Daily 30 tablet 3 5 Active nystatin (Mycostatin) 006886 UNIT/GM powderIndicatio ns:Yeast infection of the skin Apply topically in the morning and in the evening and before bedtime. 15 g 5 08/13/19 26 Active Active Problems Problem Noted Date Diagnosed Date Hypertrophy of tonsils 01/17/2023 Irritable bowel syndrome without diarrhea 2022 Allergic rhinitis 01/01/2007 Encounters Date Type Department Care Team Description 08/12/2024 10:00 AM EDT Office Visit [facility] [address] [facility] [place] [place] [phone] Polly Pizano PA Well woman exam with routine gynecological exam; Screen for STD (sexually transmitted disease); Yeast infection of the skin 08/12/2024 Bamboo flowsheet [facility] OB [address] [facility] [place] [address] Polly Pizano PA from Last 3 Months Immunizations Immunization Administration Dates Next Due DTaP, Unspecified 04/12/2004,2000,03/22/19 01 Hep B, Adolescent or Pediatric 07/12/2004,2000 HiB, unspecified 2000,2000 Hib / Hep B 04/12/2004 IPV 04/12/2004,01/01/2001,2000 ,2000 MMR 04/12/2004 Meningococcal ACWY, unspecified 09/20/2017 Pneumococcal Conjugate PCV 7 07/12/2004,06/24/19,2000 Family History Relation Name Status Comments Father Alive Mother Alive Social History Tobacco Use Types Packs/Day Years Used Date Smoking Tobacco: Every Day Cigarettes Smokeless Tobacco: Never Tobacco Cessation:Ready to Q uit: Not Asked; Counseling Given: Not Answered Alcohol Use Standard Drinks/Week Comments Not Currently 0 (1 standard drink = 0.6 oz pur e alcohol) Comments No Sex and Gender Information Value Date Recorded Sex Assigned at Female 09/13/2022 10:54 PM EDT Legal Sex Female 7:19 PM EDT Gender Identity Female 09/13/2022 10:54 PM EDT Sexual Orientation Not on file Last Filed Vital Signs Vital Sign Reading Time Taken Comments Blood Pressure 120/72 08/12/2024 10:15 AM EDT Pulse - - Temperature - - Respiratory Rate - - Oxygen Saturation - - Inhaled Oxygen Concentration - - Weight 85.7 kg (189 lb) 08/12/2024 10:15 AM EDT Height 167.6 cm (5' 6 ) 08/12/2024 10:15 AM EDT Body Mass Index 30.51 08/12/2024 10:15 AM EDT Plan of Treatment Upcoming Encounters Date Type Department Care Team (Late st Contact Info) Description 02/20/2025 8:30 AM EST Procedure Visit [facility] [address] [facility] [place] [id number] Fabian Blanca, DO [address] [place] [address] [address] [place] [place], [place] [phone] Health Maintenance Due Date Last Done Comments Influenza Vaccine (#1) 2024 Insurance [employer] Care Teams Shoe Singer Relationship Specialty Start Date End Date Omid Campoverde MD [address] [place] [phone] PCP - General Family Medicine 01/17/23 Natalia Swain MD [address] [place], [place] [phone] Family Medicine 01/17/23
--- OUTSIDE RECORDS SUMMARY | 2024-08-12 19:32 | XMS_ITS | Encounter Summary ---
Author Organization [facility] Address [address] [place] [address] Care Team Providers Care Snow Removal Supervisor Name Role Phone Natalia Swain MD Unavailable [phone] Omid Campoverde MD Primary Care Provider [phone] Encounter Details Date Type Department Care Team (Late st Contact Info) Description 02/07/2023 Orders Only [facility] [address] [place] [address] Kevin Gaspar DO [address] [place] [address] Social History Tobacco Use Types Packs/Day Years Used Date Smoking Tobacco: Every Day Cigarettes Smokeless Tobacco: Never Alcohol Use Standard Drinks/Week Comments Not Currently 0 (1 standard drink = 0.6 oz pur e alcohol) Comments Unknown Sex and Gender Information Value [...] EST Procedure Visit [facility] [address] [place] [id number] Fabian Blanca DO [address], [place] [id number] documented as of this encounter Procedures Procedure Name Priority Date/Time Associated Diagnosis Comments SCANNED LABS Routine 02/07/2023 8:46 AM EST documented in this encounter Results * SCANNED LABS (02/07/2023 8:46 AM EST) Kevin Gaspar DO LAB CHG PERFORMABLES Final Result documented in this encounter Visit Diagnoses Not on filedocumented in this encounter Care Teams Snow Removal Supervisor Relationship Specialty Start Date End Date Omid Campoverde MD [address] [place] [id number] PCP - General Family Medicine 01/17/23 Natalia Swain MD [address] [place] [phone] Family Medicine 01/17/23 documented as of this encounter
--- OUTSIDE RECORDS SUMMARY | 2024-08-12 19:32 | XMS_ITS | Encounter Summary ---
Author Organization [facility] Address [address] [facility] [place] [address] Care Team Providers Care Dock Superintendent Name Role Phone Natalia Swain MD Unavailable [phone] Omid Campoverde MD Primary Care Provider [phone] Encounter Details Date Type Department Care Team (Late st Contact Info) Description 08/12/2024 Bamboo flowsheet [facility] [address] [place] [address] Polly Pizano PA [address] [place], [place] [address] Social History Tobacco Use Types Packs/Day Years [...] 02/20/2025 8:30 AM EST Procedure Visit [facility] [address] [place] [address] Fabian Blanca DO [address] [place] [address] documented as of this encounter Visit Diagnoses Not on filedocumented in this encounter Care Teams Dock Superintendent Relationship Specialty Start Date End Date Omid Campoverde MD [address] [place], [place] [phone] PCP - General Family Medicine 01/17/23 Natalia Swain MD [facility] [place] [address] Family Medicine 01/17/23 documented as of this encounter
--- OUTSIDE RECORDS SUMMARY | 2024-08-12 19:32 | XMS_ITS | Clinical Summary ---
Author Organization [facility] Address [id number] [address] [place] [address] Care Team Providers Care Radar Signal Processing Engineer Name Role Phone Unavailable Primary Care Provider Unavailabl e Social History Tobacco Use Types Packs/Day Years Used Date Smoking Tobacco: Never Assessed Comments Unknown Sex and Gender Information Value Date Recorded Sex Assigned at Not on file Legal Sex Female 11:14 AM EDT Gender Identity Not on file Sexual Orientation Not on file Plan of Treatment Health Maintenance Due Date Last Done Comments Depression Screening 2012 Tobacco Screening 2012 Adult BMI Screening 02/02/2018 DTaP,Tdap and Td Vaccines (1 - Tdap) 02/02/2019 Pap Smear 02/02/2021 Influenza Vaccine 10/07/2024 Medical Devices Not on file Insurance [employer]
[2024-08-16 09:09] LABS: Age Gdln ACOG Testing Note (.); IGP, rfx Aptima HPV ASCU Note (.)
== END 2024-08-12 19:29 | disposition home or self-care (01) ==
LOC: LAB 19:28
PROVIDERS: PCP Nurse Practitioner Family; Visit Provider Physician Assistant
DX: Z01.419 Encounter for gynecological examination (general) (routine) without abnormal findings (principal)
CPT/HCPCS: 88175

== ENCOUNTER 2025-01-28 13:14 | Outpatient (OUT) | payer SELFPAY ==
--- OUTSIDE RECORDS SUMMARY | 2025-01-15 08:32 | XMS_ITS ---
Author Organization [facility] [place] Address [address] [place] [address] Care Team Providers Care Pattern Wheel Maker Name Role Phone Natalia Swain Primary Care Provider [phone] Encounters Encounter Location Date Provider Diagnosis Electronic Health Records [address] [place] [address] 01/15/2025 Natalia Swain Plan Of Treatment No Information Progress Notes * Nadia WEINERDOB:[birth year] (24 yo F)Acc No.[id number]:01/15/2025 Patient:?Nadia WEINER :2000???Age:24 Y???Sex:FemalePhone:[phone] Address:[address] [place] [address] Subjective: * Chief Complaints: * * Medical History: * Surgical History: * Hospitalization/Major Diagno stic Procedure: * Medications: Objective: * Vitals: * Physical Examination: ??? Assessment: Plan: * Treatment: * Procedure Codes: * Preventive Medicine: ??Screenings/Counseling:?TOBACCO ACTION PLAN?Patient counselled on the dangers of tobacco use and urged to quit.? 12/24/2024 - -Date counseled * true * Date:?Generated for Printing/Faxing/eTransmitting on:?01/28/2025 01:16 PM EST
--- OUTSIDE RECORDS SUMMARY | 2025-01-28 13:16 | XMS_ITS | Patient Health Record ---
Author Organization [facility] [place] Address [address] [place] [address] Care Team Providers Care Insurance Plan Specialist Name Role Phone Natalia Swain Primary Care Provider [phone] Allergies Allergen (clinical drug ingredient) Drug/Non Drug Allergy documented on EMR Reaction Allergy Type Onset Date Status Vagisilfacial swellingDrug AllergyActive Results Component Value Reference Range Notes COVID-19, Flu A+B IH (Not ye t reviewed by provider) Interpretation: Performing Lab: Notes/Report: COVID - FLU A-FLU B-Control+IGP,Aptima HPV,Age Gdln Reviewed date:08/19/2024 08:32:35 AM Interpretation: Performing Lab: Notes/Report: BRUSH-SPATULA CERVIX ENDOCERVIX [facility] ,Age Gdln ACOG TestingNote. [address] [place] [address] TESTS RESULT FLAG UNITS REF RANGE LAB Age Algo ACOG Mihaela... 21-29 FLAG LEGEND: <-Panic Low,>-Panic High,A-Abnormal,AA-Critical Abnormal Clinician Provided Cytology Information No. of containers..01 ThinPrep Vial Source.............Cervix;Endocervix 01 =[facility] Performed at: L-Low Normal,H-High Normal,LL-Alert Low,HH-Alert High Cally Hendrix MD, IGP, rfx Aptima HPV ASCUNote. 02 [facility] Elementary Spanish Teacher: Cally Hendrix MD, Phone: [phone] cancer. Both false-positive and false-negative reports do Specimen adequacy: 02 The HPV DNA reflex criteria were not met with this specimen . 02 This liquid based ThinPrep(R) pap test was screened with Karon Garcia Naturalization Examiner (ASCP) detection of premalignant and malignant conditions of the Performed at: [facility] FLAG LEGEND: Performed at: =[facility] occur. Satisfactory for evaluation. No endocervical component is identified. TESTS RESULT FLAG UNITS REF RANGE LAB NEGATIVE FOR INTRAEPITHELIAL LESION OR MALIGNANCY. [address] [place] [address] the use of an image guided system. QC reviewed by: 02 uterine cervix. It is not a diagnostic procedure and result therefore, no HPV testing was performed. [address] [facility] [id number] Note: Note 02 DIAGNOSIS: 02 THIS SPECIMEN WAS RESCREENED PART OF OUR ENVIRONMENTAL QUALITY ANALYST PROGRAM. Performed at: [address] [facility] [place] [id number] L-Low Normal,H-High Normal,LL-Alert Low,HH-Alert High should not be used as the sole means of detecting cervical Test Methodology: Note 02 Performed by: 02 The Pap smear is a screening test designed to aid in the Elementary Spanish Teacher: Cally Hendrix MD, Phone: [phone] . 02 Laura Brunson, Naturalization Examiner (ASCP) Cally Hendrix MD, <-Panic Low,>-Panic High,A-Abnormal,AA-Critical Abnormal Performing Lab:see noteLC - [facility] LB Reason For Referral No Information Medications Medication SIG (Take, Route, Frequency, Duration) Notes Start Date End Date Status Sertraline HCl 50 MG 1.5 tablet Orally O nce a day Orally Once a day; Duration: 90 days ActiveAmoxicillin-Pot Clavulanate 875-125 MG1 tablet Orally every 12 hrs; Duration: 10 days5ActiveARIPiprazole 2 MGTAKE 1 TABLET BY MOUTH EVERY DAY FOR 90 DAYS; Duration: 90ActiveOmeprazole 20 MG1 capsule 1/2 to 1 hour before morning meal Orally Once a day; Duration: 30 days5Active Social History Tobacco Use: Social History Observation Description Date Details (start date - stop date) Never Smoker NA - NA Tobacco Use/Smoking Question Answer Notes Patient is a nonsmoker Alcohol Screen (Audit-C) Question Answer Notes Did you have a drink containing alcohol in the p ast year? Yes How often did you have 6 or more drinks on one occasion in the past year?Monthly or less (1 point)How many drinks did you have on a typical day when you were drinking in the past year?3 or 4 drinks (1 point)How often did you have a drink containing alcohol in the past year?Monthly (2 points)Ilpoqj0Zbnhwknkezqetg PositiveTobacco use other than smoking: Question Answer Notes Are you an other tobacco user? Vape dailyAUDIT-C (Standard) Question Answer Notes Did you have a drink containing alcohol in the p ast year? No Eswvba0DfdhqigscmecvvZdrcqmnr Problems Problem Type SNOMED Code ICD Code Onset Dates Problem Status W/U Status Risk Notes Problem Benign tumor of breast (50337907 0) Benign neoplasm of unspecified breast (D24.9) ActiveconfirmedProblemHypertrophy of tonsils (87386792)Hypertrophy of tonsils (J35.1)ActiveconfirmedProblemIrritable bowel syndrome (29467882)Irritable bowel syndrome without diarrhea (K58.9)ActiveconfirmedProblemCervicovaginal cytology: Low grade squamous intraepithelial lesion (638371793)Low grade squamous intraepithelial lesion on cytologic smear of cervix (LGSIL) (R87.612)Active confirmedProblemGastroesophageal reflux disease (834931212)GERD (gastroesophageal reflux disease) (K21.9)ActiveconfirmedProblemSinusitis (98685509)Sinusitis (J32.9)ActiveconfirmedProblemMixed anxiety and depressive disorder (611537673)Anxiety and depression (F41.8)ActiveconfirmedProblemObese class I (finding) (140058851860618)Class 1 obesity (E66.9)Activeconfirmed Vital Signs Heart Rate 93 /min 06/25/2024 Frmajsheytn76.6 degrees Nsiimlyvdc70/18/8321Cyhyikuq81 %06/25/2024lood pressure isxilllhg58 mm Hg12/24/20245623Cxvler92 in12/24/2024lood pressure btyixzsm679 mm Hg 12/24/20249222Tvivcq144 lbs102/24/2024BMI29.05 kg/m212/24/2024 Encounters Encounter Location Date Provider Diagnosis [facility] [address] [place] [address] 06/25/2024 Natalia Swain Sinusitis J32.9 [facility] [address] [place] [address] 07/03/2024 Natalia Swain Class 1 obesity E66. 9 [facility] [address] [place] [address] 08/07/2024 Natalia Swain Anxiety and depression F41.8 ; GERD (gastroesophageal reflux disease) K21.9 and Class 1 obesity E66.9 [facility] [address] [place] [address] 12/24/2024 Natalia Swain Coughing R05.9 ; Anxiety and depression F41.8 and Sinusitis J32.9 [facility] [address] [place] [address] 08/05/2024 Natalia Swain [facility] [address] [place], [place] [address]/11/2024Natalia Swain Assessments Encounter Date Diagnosis (ICD Code) Assessment Notes Treatment Notes Treatment Clinical Notes Section Notes 06/25/2024 Sinusitis (ICD-10 - J32.9) otc meds if not improving notify office 07/03/2024lass 1 obesity (ICD-10 - E66.9) stop med if SE work on diet, activity fu 1 month CSA signed OARRS reviewed 08/07/2024GERD (gastroesophageal reflux disease) (ICD-10 - K21.9)08/07/2024 Anxiety and depression (ICD-10 - F41.8)12/24/2024oughing (ICD-10 - R05.9) 12/24/2024nxiety and depression (ICD-10 - F41.8)08/07/2024lass 1 obesity (ICD- 10 - E66.9) work on diet if wants to continue adipex, try 1/2 pill fu as needed 12/24/2024Sinusitis (ICD-10 - J32.9) rest push fluids add flonase to otc claritin 3rd sinus infection since fall Plan Of Treatment Pending Test Test Name Order Date COVID-19, Flu A+B IH 12/24/2024 STREPT SCREEN 12/06/2022 Medical (General) History Medical History History ICD Code Cyst of breast, right N60.01 Cyst of left breast N60.02 Allergic rhinitis J30.9 Endometriosis N80.9 Insomnia G47.00 COVID-19 U07.1 Anxiety F41.9 GERD (gastroesophageal reflux disease) K 21.9 RUQ pain R10.11 Sebaceous cyst L72.3 Depression F32.9 Miscarriage O03.9 Surgical History Surgery Date(Month/Year) Tonsillectomy Biopsy- Right Xxxznp37/2023
--- OUTSIDE RECORDS SUMMARY | 2025-01-28 13:16 | XMS_ITS | Clinical Summary ---
Author Organization [facility] [place] [address] Care Team Providers Care Board Handler Name Role Phone Milton Medina Primary Care Provider [phone] Allergies No known active allergies Medications MedicationSigDispense QuantityRefillsLast FilledStart DateEnd DateStatus ALBUTEROL IN Inhale into the lungsActive Active Problems No known active problems Family History Medical HistoryRelationCommentsAnxiety DisorderBrother 1Bipolar DisorderBrother 1DepressionBrother 1SeizuresBrother 1Heart DiseaseFatherHigh CholesterolFather Heart DiseaseMaternal GrandfatherAORTIC ANEURYSMHeart SurgeryMaternal GrandfatherTRIP BAPSS/ STENTS/StrokeMaternal GrandmotherHeart AttackPaternal GrandfatherHeart AttackPaternal GrandmotherHeart DiseasePaternal Grandmother Anxiety DisorderSister 2AsthmaSister 2SIDSSister 2DepressionSister 3Relation StatusCommentsBrother 1AliveBrother 2AliveBrother 3AliveFatherAliveMaternal GrandfatherAliveMaternal GrandmotherDeceasedMotherAlivePaternal Grandfather DeceasedPaternal GrandmotherDeceasedSister 1AliveSister 2AliveSister 3Alive Social History Tobacco UseTypesPacks/DayYears UsedDateSmoking Tobacco: Passive Smoke Exposure - Never SmokerAlcohol UseStandard Drinks/WeekCommentsNo0 (1 standard drink = 0.6 oz pure alcohol)CommentsNoSex and Gender InformationValueDate Recorded Sex Assigned at BirthNot on fileLegal XuiUioohx44/19/2016 9:59 AM EDTGender IdentityNot on fileSexual OrientationNot on file Last Filed Vital Signs Vital SignReadingTime TakenCommentsBlood Bbzecath799/6209 10:01 AM EDT Oqagc545310/08/2015 10:01 AM EDTTemperature--Respiratory Myzz1246 10:01 AM EDTOxygen Wbotliqlqp32%10/08/2015 10:01 AM EDTInhaled Oxygen Concentration-- Nkuelz67.3 kg (135 lb 2.3 oz)10/08/2015 10:01 AM PFWMcpcvz588.4 cm (5' 4.33 ) 10/08/2015 10:01 AM EDTBody Mass Index22.9610/08/2015 10:01 AM EDT Plan of Treatment Health MaintenanceDue DateLast DoneCommentsMMR (1 of 1 - Standard series) 02/02/2001Tetanus Diphtheria and Pertussis Vaccines (1 - Tdap)02/02/2007 Varicella (1 of 2 - 13+ 2-dose series)02/02/2013HPV (1 - 3-dose series) 02/02/2015MenB (1 of 2 - MenB 2-Dose Series Bexsero)2016Hepatitis B (1 of 3 - 19+ 3-dose series)02/02/2019COVID-19 ( season)2024FLU (#1) 10/07/2024HIBAged OutNo longer eligible based on patient's age to complete this topicHepatitis AAged OutNo longer eligible based on patient's age to complete this topicMenACWYAged OutNo longer eligible based on patient's age to complete this topicNirsevimabAged OutNo longer eligible based on patient's age to complete this topicPneumococcalAged OutNo longer eligible based on patient's age to complete this topicPolioAged OutNo longer eligible based on patient's age to complete this topicRotavirusAged OutNo longer eligible based on patient's age to complete this topic Insurance Care Teams Team MemberRelationshipSpecialtyStart DateEnd Date Milton Medina DO [address] [facility] [address] [facility] - General10/08/15
--- NOTE | 2025-01-28 13:17 | US_ITS ---
Patient Name: COOKIE WEINER MR#: [id number] : 2000 Exam Date: 01/28/2025 Ordering Doctor: JAMES AVILEZ . RADIOLOGY REPORT PROCEDURE: MM TOMOSYNTHESIS DIAGNOSTIC BI, 01/28/2025, 13:10 US BREAST RT LIMITED, 01/28/2025, 14:04 COMPARISON: MAMMO POST BIOPSY RIGHT, 11/21/2022. MM TOMOSYNTHESIS DIAGNOSTIC BI, 10/31/2022. INDICATIONS: Nipple Pain, Breast Pain, History Breast Cyst Calculator Name NCI Breast Cancer Risk Assessment Tool 5 Year Breast Cancer Risk Not Applicable. Lifetime Breast Cancer Risk Not Applicable. Personal Breast Cancer No Personal Ovarian Cancer No Treatments None Family Cancers Grandfather-paternal with colon cancer at age 80; Uncle-maternal with brain cancer at age 50; Aunt-maternal with breast cancer at age 73. LOCATION: [facility] BREAST COMPOSITION: The breasts are extremely dense, which lowers the sensitivity of mammography. FINDINGS: DIAGNOSTIC CATEGORY 3--PROBABLY BENIGN FINDING. THE FOLLOWING FINDING(S) HAS A HIGH PROBABILITY OF A BENIGN ETIOLOGY: A mass is seen in the area of concern at the 9 o'clock position of the right breast with biopsy clip in place. No new areas of architectural distortion couple worrisome masses or suspicious microcalcifications within either breast. Ultrasound demonstrates a lobulated mass at the 9 o'clock position of the right breast 8.5 cm from nipple measuring 3.0 x 2.4 x 1.3 cm. Compared to the prior ultrasound study, this appears to have increased in size once measuring 2.2 x 2.2 x 1.3 cm . Additional scanning of the right axilla demonstrates no suspicious lymph nodes . RECOMMENDATIONS: SURGICAL CONSULTATION. If intervention is not performed, diagnostic right breast mammogram and ultrasound in 6 months is recommended. Dictated by: Husam Church DO on 01/28/2025 at 14:37 Approved by: Husam Church DO on 01/28/2025 at 14:44
== END 2025-01-28 13:15 | disposition home or self-care (01) ==
LOC: MAMMO 13:14
PROVIDERS: PCP Nurse Practitioner Family; Visit Provider Physician Assistant
DX: N64.4 Mastodynia (principal); Z87.2 Personal history of diseases of the skin and subcutaneous tissue; Z87.898 Personal history of other specified conditions; Z80.0 Family history of malignant neoplasm of digestive organs; Z80.3 Family history of malignant neoplasm of breast; Z80.8 Family history of malignant neoplasm of other organs or systems; R92.8 Other abnormal and inconclusive findings on diagnostic imaging of breast
CPT/HCPCS: 76642; 77066; G0279